=== PATIENT | male | born 1955 | race Caucasian/White ===

== ENCOUNTER 2020-10-10 13:15 | Outpatient (REF) | payer OTHER, SELFPAY ==
[2020-10-10 14:44] LABS: Alanine Aminotransferase 29 U/L (0-40); Albumin Level 4.4 g/dL (3.5-5.0); Alkaline Phosphatase 97 U/L (39-117); Anion Gap 14 (12-20); Aspartate Amino Transferase 23 U/L (5-37); Bilirubin Total 0.8 mg/dL (0.0-1.0); Blood Urea Nitrogen 10 mg/dL (9-16); Calcium 9.3 mg/dL (8.4-10.2); Carbon Dioxide 32 mmol/L (22-29); Chloride 98 mmol/L (96-108); Cholesterol 104 mg/dL; Estimated Glomerular Filt Rate > 60; Glucose Fasting 177 mg/dL (60-99); HDL Cholesterol 40 mg/dL; LDL Cholesterol Calculated 50 mg/dl; Potassium 3.8 mmol/l (3.3-5.1); Sodium 140 mmol/L (135-145); Total Protein 7.4 g/dL (6.5-8.0); Triglycerides 73 mg/dL
[2020-10-10 15:03] LABS: Estimated Average Glucose 120 mg/dL; Hemoglobin A1C 151.5231 umol/L; Hemoglobin A1c % 5.8 %
== END 2020-10-10 13:16 | disposition home or self-care (01) ==
LOC: HO.HMGCLDS 13:15
PROVIDERS: PCP Nurse Practitioner Family; Visit Provider Nurse Practitioner Family
DX: E04.2 Nontoxic multinodular goiter (principal); R79.89 Other specified abnormal findings of blood chemistry
CPT/HCPCS: 80053; 80061; 83036

== ENCOUNTER → 2020-10-31 13:38 | Outpatient (BNVA) | payer OTHER, SELFPAY | PROVIDERS: PCP Nurse Practitioner Family; Visit Provider Internal Medicine | DX: I25.10 Atherosclerotic heart disease of native coronary artery without angina pectoris (principal); F17.200 Nicotine dependence, unspecified, uncomplicated; Z95.1 Presence of aortocoronary bypass graft | CPT/HCPCS: 93005; 99212 ==

== ENCOUNTER → 2021-05-01 12:51 | Outpatient (BNVA) | payer MEDICARE, SELFPAY | PROVIDERS: PCP Nurse Practitioner Family; Referring Provider Nurse Practitioner Family; Visit Provider Internal Medicine | DX: I25.10 Atherosclerotic heart disease of native coronary artery without angina pectoris (principal); F17.200 Nicotine dependence, unspecified, uncomplicated; Z95.1 Presence of aortocoronary bypass graft | CPT/HCPCS: 99212 ==

== ENCOUNTER 2021-12-31 15:20 | Outpatient (REF) | payer MEDICARE, SELFPAY ==
--- NOTE | ~2021-12-31 | XR_ITS ---
EXAMINATION: XR CHEST CLINICAL INFORMATION: Pneumonia COMPARISON: Previous chest x-ray October [address] most recent April 2020 TECHNIQUE: 2 views of the chest were obtained. FINDINGS: The cardiac silhouette does not appear enlarged. There are post-CABG changes. Hilar and mediastinal contours are unremarkable. The lungs are well inflated. The lungs are clear. There is no pleural effusion or pneumothorax. There are degenerative changes of the spine. XR/XR chest 2V IMPRESSION: Well-inflated lungs. No evidence of pneumonia.
== END 2021-12-31 15:21 | disposition home or self-care (01) ==
LOC: HO.HMGCX 15:20
PROVIDERS: Visit Provider Internal Medicine
DX: J18.9 Pneumonia, unspecified organism (principal)
CPT/HCPCS: 71046

== ENCOUNTER 2022-01-15 14:01 | Outpatient (REF) | payer OTHER, SELFPAY ==
--- NOTE | ~2022-01-15 | XR_ITS ---
EXAMINATION: XR CHEST CLINICAL INFORMATION: Pneumonia. COMPARISON: None TECHNIQUE: 2 views of the chest were obtained. FINDINGS: The lungs are hyperinflated but clear of acute process. The heart size and pulmonary vascularity is normal. There are median sternotomy sutures and mediastinal el from previous CABG. No gross bony abnormality seen. XR/XR chest 2V IMPRESSION: Hyperinflated lungs without acute process.
== END 2022-01-15 14:02 | disposition home or self-care (01) ==
LOC: HO.HMGCX 14:01
PROVIDERS: PCP Nurse Practitioner Family; Visit Provider Nurse Practitioner Family
DX: J18.9 Pneumonia, unspecified organism (principal)
CPT/HCPCS: 71046

== ENCOUNTER 2022-01-27 13:02 | Outpatient (REF) | payer OTHER, SELFPAY ==
--- NOTE | ~2022-01-27 | CT_ITS ---
EXAMINATION: CT CHEST SCREENING CLINICAL INFORMATION: Current smoker COMPARISON: Previous chest CT most recent April 2020 TECHNIQUE: Multidetector volumetric CT imaging of the chest is performed without contrast using low dose technique. Additional 2D coronal and sagittal reformatted images and axial 3D maximum intensity projection (MIP) images are generated on the CT workstation. This CT examination was performed using dose optimization techniques as appropriate, variously including the following: *Automated exposure control *Adjustment of mA and/or kV according to patient size (this includes techniques or standardized protocols for targeted exams where dose is matched to indication/reason for exam; i.e. extremities or head) *Use of iterative reconstruction technique DLP: 83 mGy-cm FINDINGS: LUNGS: There is scarring or subsegmental atelectasis and focal bronchiectasis in the right middle lobe that is stable. The lungs are otherwise clear. There is new increased soft tissue seen in the right side of the upper trachea coronal reconstructed image 60. This appears heterogeneous in attenuation and mixed with air and is probably related to patient secretions. No other endobronchial or endotracheal lesion is seen. MEDIASTINUM: There are post-CABG changes. The mediastinum is otherwise normal. PLEURA: There is no pleural effusion. No pleural mass or thickening. AXILLA: No lymphadenopathy. UPPER ABDOMEN: There is dependent high attenuation in the gallbladder probably presenting gallstones. OSSEOUS STRUCTURES: There are degenerative changes of the spine. There are median sternotomy wires. CT/CT lung screening IMPRESSION: Stable scarring or subsegmental atelectasis and focal bronchiectasis in the right middle lobe. The lungs are otherwise clear. Post-CABG changes. Probable gallstones. ASSESSMENT: Lung-RADS category 2: Benign RECOMMENDATION: Annual low-dose chest CT follow-up recommended.
== END 2022-01-27 13:03 | disposition home or self-care (01) ==
LOC: HO.CT 13:02
PROVIDERS: Visit Provider Physician Assistant Medical
DX: Z12.2 Encounter for screening for malignant neoplasm of respiratory organs (principal); Z87.891 Personal history of nicotine dependence
CPT/HCPCS: 71271

== ENCOUNTER → 2022-05-20 13:23 | Outpatient (BNVA) | payer OTHER, SELFPAY | PROVIDERS: PCP Nurse Practitioner Family; Referring Provider Nurse Practitioner Family; Visit Provider Internal Medicine | DX: I25.10 Atherosclerotic heart disease of native coronary artery without angina pectoris (principal); F17.210 Nicotine dependence, cigarettes, uncomplicated; Z95.1 Presence of aortocoronary bypass graft | CPT/HCPCS: 93005; 99212 ==

== ENCOUNTER 2023-03-25 08:13 | Outpatient (REF) | payer OTHER, SELFPAY ==
[2023-03-25 11:11] LABS: MANUAL DIFF FLAG NO
[2023-03-25 11:22] LABS: Basophils Absolute Auto 0.1 X10*3/uL (0.0-0.2); Basophils Percent Auto 1.1 % (0-2); Eosinophils Absolute Auto 0.2 X10*3/uL (0.0-0.4); Eosinophils Percent Auto 2.4 % (0-4); Imm Gran Abs Auto 0.01 X10*3/uL (0.00-0.03); Imm Gran Pct Auto 0.1 % (0.0-0.4); Lymphocytes Percent Auto 41.4 % (20-40); Mean Corpuscular HGB Conc 33.3 g/dl (31.0-36.0); Mean Corpuscular Hemoglobin 30.3 pg (27.0-33.0); Mean Corpuscular Volume 90.9 fL (80.0-98.0); Mean Platelet Volume 11.3 fL (9.4-12.4); Monocytes Absolute Auto 0.7 X10*3/uL (0.1-1.2); Monocytes Percent Auto 9.4 % (2-11); Neutrophils Absolute Auto 3.3 x10*3/uL (2.0-8.3); Neutrophils Percent Auto 45.6 % (45-73); Platelet Count 258 X10*3/uL (160-400); Red Blood Count 4.29 X10*6/uL (4.60-5.80); Red Cell Distribution Width 12.6 % (11.0-16.0); White Blood Count 7.1 X10*3/uL (4.8-10.8)
[2023-03-25 11:23] LABS: Appearance Urine Clear; Color Urine Yellow; Glucose Urine UA >=1000 mg/dL (Negative); Leukocyte Esterase Urine Negative (Negative); Nitrite Urine Negative (Negative); UMIC TRIGGER UACC YES; Urine Blood Negative (Negative); Urine Ketones Negative (Negative); Urine Protein Negative (Neg-Trace)
[2023-03-25 11:31] LABS: Bacteria Urine None Seen (None Seen); Hyaline Casts Urine 0-2 /LPF (0-2); RBC Urine 0-2 /HPF (0-2); Squamous Epithelial Cell Urine 0-2 /HPF (0-2); WBC Urine 0-5 /HPF (0-5)
[2023-03-25 11:46] LABS: Estimated Average Glucose 237 mg/dL; Hemoglobin A1c % 9.9 %
[2023-03-25 12:05] LABS: TSH reflex Free T4 0.88 uIU/mL (0.32-4.0)
[2023-03-25 12:07] LABS: Creatinine Urine 59.27 mg/dL; Microalbum/Creatinine Ratio Ur 8.4 ug/mg cr
== END 2023-03-25 08:14 | disposition home or self-care (01) ==
LOC: HO.HMGCLDS 08:13
PROVIDERS: PCP Nurse Practitioner Family; Visit Provider Nurse Practitioner Family
DX: E11.9 Type 2 diabetes mellitus without complications (principal)
CPT/HCPCS: 36415; 81001; 82043; 83036; 84443; 85025

== ENCOUNTER 2023-09-17 12:10 | Outpatient (REF) | payer OTHER, SELFPAY ==
[2023-09-17 13:06] LABS: MANUAL DIFF FLAG NO
[2023-09-17 13:17] LABS: Appearance Urine Clear; Color Urine Yellow; Glucose Urine UA Negative (Negative); Leukocyte Esterase Urine Negative (Negative); Nitrite Urine Negative (Negative); Specific Gravity - Urine 1.015 (1.005-1.025); Urine Blood Negative (Negative); Urine Ketones Negative (Negative); Urine Protein Negative (Neg-Trace)
[2023-09-17 13:29] LABS: Basophils Absolute Auto 0.1 X10*3/uL (0.0-0.2); Eosinophils Absolute Auto 0.1 X10*3/uL (0.0-0.4); Eosinophils Percent Auto 2.3 % (0-4); Hematocrit 38.7 % (42.0-52.0); Hemoglobin 12.4 g/dl (14.0-18.0); Imm Gran Abs Auto 0.02 X10*3/uL (0.00-0.03); Imm Gran Pct Auto 0.3 % (0.0-0.4); Lymphocytes Percent Auto 32.9 % (20-40); Mean Corpuscular Hemoglobin 29.9 pg (27.0-33.0); Mean Corpuscular Volume 93.3 fL (80.0-98.0); Mean Platelet Volume 10.6 fL (9.4-12.4); Monocytes Absolute Auto 0.6 X10*3/uL (0.1-1.2); Monocytes Percent Auto 9.2 % (2-11); Neutrophils Absolute Auto 3.3 x10*3/uL (2.0-8.3); Neutrophils Percent Auto 54.3 % (45-73); Platelet Count 246 X10*3/uL (160-400); Red Blood Count 4.15 X10*6/uL (4.60-5.80); Red Cell Distribution Width 12.9 % (11.0-16.0); White Blood Count 6.1 X10*3/uL (4.8-10.8)
[2023-09-17 13:42] LABS: Estimated Average Glucose 134 mg/dL; Hemoglobin A1c % 6.3 % (<6.0)
[2023-09-17 14:06] LABS: Creatinine Urine 63.06 mg/dL; Microalbum/Creatinine Ratio Ur 15.8 ug/mg cr (<30)
[2023-09-17 14:16] LABS: Alanine Aminotransferase 13 U/L (0-40); Albumin Level 3.7 g/dL (3.5-5.0); Alkaline Phosphatase 88 U/L (39-117); Anion Gap 8 (12-20); Aspartate Amino Transferase 15 U/L (5-37); Bilirubin Total 0.4 mg/dL (0.0-1.0); Blood Urea Nitrogen 12 mg/dL (9-16); Carbon Dioxide 32 mmol/L (22-29); Chloride 101 mmol/L (96-108); Cholesterol 113 mg/dL (<200); Estimated Glomerular Filt Rate > 60; Glucose Fasting 128 mg/dL (60-99); Glucose Random 127 mg/dL (60-115); HDL Cholesterol 46 mg/dL (>40); LDL Cholesterol Calculated 57 mg/dL (<100); Potassium 4.3 mmol/L (3.3-5.1); Sodium 137 mmol/L (135-145); Total Protein 6.6 g/dL (6.5-8.0); Triglycerides 51 mg/dL (<150)
[2023-09-17 14:18] LABS: Prostate Specific Antigen Scr 0.48 ng/mL (<0.05-4.0); TSH reflex Free T4 1.33 uIU/mL (0.32-4.0)
== END 2023-09-17 12:11 | disposition home or self-care (01) ==
LOC: HO.HMGCLDS 12:10
PROVIDERS: PCP Nurse Practitioner Family; Visit Provider Nurse Practitioner Family
DX: Z12.5 Encounter for screening for malignant neoplasm of prostate (principal); E11.65 Type 2 diabetes mellitus with hyperglycemia
CPT/HCPCS: 36415; 80053; 80061; 81003; 82043; 82570; 83036; 84153; 84443; 85025

== ENCOUNTER 2024-02-09 20:15 | Emergency (ER) | payer OTHER, SELFPAY ==
[2024-02-09 20:21] VITALS: BP 160/64; PULSE 77; O2SAT 98
[2024-02-09 21:15] VITALS: BP 123/66; PULSE 56; RESP 16; TEMP 36.5; O2SAT 96; BMI 17.2
== END 2024-02-10 04:05 | disposition left against medical advice (07) ==
PROVIDERS: Emergency Provider Emergency Medicine
DX: M25.561 Pain in right knee (principal); M25.562 Pain in left knee
CPT/HCPCS: 99281

== ENCOUNTER 2024-03-24 12:22 | Outpatient (REF) | payer OTHER, SELFPAY ==
[2024-03-24 15:59] LABS: Appearance Urine Clear; Color Urine Yellow; Glucose Urine UA >=1000 mg/dL (Negative); Leukocyte Esterase Urine Negative (Negative); Nitrite Urine Negative (Negative); UMIC TRIGGER UACC YES; Urine Blood Negative (Negative); Urine Ketones Negative (Negative); Urine Protein Negative (Neg-Trace)
[2024-03-24 16:04] LABS: MANUAL DIFF FLAG NO
[2024-03-24 16:11] LABS: Bacteria Urine None Seen (None Seen); Hyaline Casts Urine 0-2 /LPF (0-2); RBC Urine 0-2 /HPF (0-2); Squamous Epithelial Cell Urine 0-2 /HPF (0-2); WBC Urine 0-5 /HPF (0-5)
[2024-03-24 16:15] LABS: Basophils Absolute Auto 0.1 X10*3/uL (0.0-0.2); Basophils Percent Auto 1.3 % (0-2); Eosinophils Absolute Auto 0.1 X10*3/uL (0.0-0.4); Eosinophils Percent Auto 0.9 % (0-4); Hematocrit 41.5 % (42.0-52.0); Hemoglobin 14.2 g/dl (14.0-18.0); Imm Gran Abs Auto 0.01 X10*3/uL (0.00-0.03); Imm Gran Pct Auto 0.1 % (0.0-0.4); Lymphocytes Absolute Auto 2.5 X10*3/uL (1.2-4.9); Mean Corpuscular HGB Conc 34.2 g/dl (31.0-36.0); Mean Corpuscular Hemoglobin 31.1 pg (27.0-33.0); Mean Platelet Volume 11.3 fL (9.4-12.4); Monocytes Absolute Auto 0.5 X10*3/uL (0.1-1.2); Monocytes Percent Auto 7.6 % (2-11); Neutrophils Absolute Auto 3.7 x10*3/uL (2.0-8.3); Neutrophils Percent Auto 54.1 % (45-73); Platelet Count 249 X10*3/uL (160-400); Red Blood Count 4.56 X10*6/uL (4.60-5.80); Red Cell Distribution Width 13.4 % (11.0-16.0); White Blood Count 6.8 X10*3/uL (4.8-10.8)
[2024-03-24 16:41] LABS: Creatinine Urine 53.35 mg/dL; Estimated Average Glucose 206 mg/dL; Hemoglobin A1c % 8.8 % (<6.0); Microalbum/Creatinine Ratio Ur 11.2 ug/mg cr (<30)
[2024-03-24 16:44] LABS: Alanine Aminotransferase 19 U/L (0-40); Albumin Level 4.1 g/dL (3.5-5.0); Alkaline Phosphatase 98 U/L (39-117); Anion Gap 11 (12-20); Aspartate Amino Transferase 13 U/L (5-37); Bilirubin Total 0.7 mg/dL (0.0-1.0); Blood Urea Nitrogen 9 mg/dL (9-16); Calcium 9.6 mg/dL (8.4-10.2); Carbon Dioxide 30 mmol/L (22-29); Chloride 103 mmol/L (96-108); Cholesterol 102 mg/dL (<200); Estimated Glomerular Filt Rate > 60; Glucose Fasting 302 mg/dL (60-99); HDL Cholesterol 38 mg/dL (>40); LDL Cholesterol Calculated 51 mg/dL (<100); Potassium 4.6 mmol/L (3.3-5.1); Sodium 139 mmol/L (135-145); Total Protein 6.7 g/dL (6.5-8.0); Triglycerides 69 mg/dL (<150)
[2024-03-24 16:50] LABS: Prostate Specific Antigen Scr 0.72 ng/mL (<0.05-4.0)
[2024-03-24 16:52] LABS: TSH reflex Free T4 0.64 uIU/mL (0.32-4.0)
== END 2024-03-24 12:23 | disposition home or self-care (01) ==
LOC: HO.HMGCLDS 12:22
PROVIDERS: PCP Nurse Practitioner Family; Visit Provider Nurse Practitioner Family
DX: E11.65 Type 2 diabetes mellitus with hyperglycemia (principal); E11.9 Type 2 diabetes mellitus without complications; Z12.5 Encounter for screening for malignant neoplasm of prostate
CPT/HCPCS: 36415; 80053; 80061; 81001; 81003; 82043; 82570; 83036; 84153; 84443; 85025

== ENCOUNTER 2024-03-28 12:52 | Outpatient (AMB) | payer OTHER, SELFPAY ==
--- NOTE | 2024-03-28 12:56 | MHC.PC.OV ---
Vital Signs 03/28/24 12:59 Height 5 ft 7 in Weight 204 lb BMI 31.9 BP 120/82 Blood Pressure Location Rt brachial Position Sitting Pulse 66 Pulse Source Pulse Oximeter Pulse Oximetry (%) 97 Oxygen Delivery Method Room Air Intake Visit Reasons: Followup diabetes Intake Note: Patient here for diabetes f/u Allergies ibuprofen [From Motrin] Adverse Reaction (Unknown, Verified 03/28/24 13:14) Gastrointestinal Upset Medication List - Last Reconciled 03/28/24 by MAURO Rodriguez- aspirin 81 mg PO DAILY 30 days atorvastatin 80 mg PO DAILY blood sugar diagnostic (FreeStyle Lite Strips) check glucose BID blood-glucose meter (FreeStyle Lite Meter kit) check glucose BID comp.stocking,knee,long,medium for edema, please wear daily dapagliflozin propanediol (Farxiga) 5 mg PO DAILY duloxetine 60 mg PO BEDTIME FreeStyle Jesu 2 [place] (flash glucose scanning reader) TID testing NS FreeStyle Jesu 2 Sensor (flash glucose sensor) TID testing NS lancets (FreeStyle Lancets) check glucose BID losartan 25 mg PO DAILY metformin ER 1,000 mg PO QPM metoprolol succinate ER 25 mg PO DAILY nicotine 1 patch topical DAILY 30 days Tobacco use date assessed: 03/28/24 Fall risk assessment: 2 + Falls in past year Last assessed Fall Risk: 03/28/24 Dental Screening Dental Screen Date: 03/28/24 Did you have a dental visit in the last 12 months?: No Did you have a dental problem in the last 6 months where you did not have access to dental care?: No Was dental information given to patient?: Patient has dentist HPI Followup diabetes HPI Details Pt is a diabetic, on an ARB and a statin. Last A1C was 8.8. Microalbumin is up to date. Denies polyuria, polydipsia, and neuropathy. Pt denies any signs and symptoms of hypoglycemia and does know how to correct it. Pt would not like to take any injectable meds. Will start farxiga 5mg. Will also increase metformin from 750mg daily to 750mg bid. Pt will schedule his own eye exam. He will also schedule a follow up with cardiology. Pt reports being off all street drugs for approximately 2 months. Labs are already drawn [facility] Medical History Smoking Atherosclerotic cardiovascular disease Surgical History Status post coronary artery bypass graft History of lumbar discectomy (~1994) History of coronary artery bypass graft (~07/30/18) History of cardiac catheterization (~07/21/18) Family History Father Diabetes Mother Diabetes Myasthenia gravis Maternal Uncle Substance use disorder Mental health disorder Social History Housing: Apartment Patient Tobacco Use Status: Current everyday Tobacco user Cigarettes Per Day: 10 e-Cigarette/Vaping Use: Never Used Second Hand Smoke Exposure: No service: No Current occupational status: retired and disabled Cognitive needs: No Hearing needs: No Vision needs: No Questionnaire PHQ-9 Over the last 2 weeks, how often have you been bothered by any of the following problems? 72520 - PHQ-9 Billing: Patient declined-do not bill Source: Developed by Drs. Alonso Mao, Dayo Khan and colleagues, with an educational yessica from [employer]. Thrive Questionnaire Date Thrive assessed: 02/05/22 Currently or been in a relationship where the following occur: no concerns reported THRIVE Score: 0 AUDIT C Alcohol Use Questionnaire (AUDIT-C) 1. How often do you have a drink containing alcohol?: Never 3. How often do you have six or more drinks on one occasion?: Never Total Score: 0 Score Reviewed/Action Taken: No NEREYDA-7 AMB Questionnaire NEREYDA-7 Date NEREYDA - 7 assessed: 03/28/24 Source: Developed by Drs. Alonso Mao, Micheline Hilliard, Dayo Case and colleagues, with an educational yessica from [employer]. NEREYDA-7 Assessment Billing NEREYDA-7 Assessment Tool: pt declined-do not bill Review of Systems Const Reports as per HPI Physical exam (Primary Care) Vital Signs: Last Vital Signs Pulse 66 03/28/24 12:59 BP 120/82 03/28/24 12:59 Pulse Ox 97 03/28/24 12:59 Oxygen Delivery Method Room Air 03/28/24 12:59 BMI result Body Mass Index 31.9 Tobacco/Smoking Status: Tobacco use Status Tobacco use date assessed 03/28/24 03/28/24 13:05 Patient Tobacco Use Status Current everyday Tobacco 03/28/24 12:57 e-Cigarette/Vaping Use Never Used 03/28/24 12:57 Thrive Assessment: Date of Thrive Assessment Date Thrive assessed 02/05/22 03/28/24 12:57 Currently or been in a relationship where the following occur: no concerns reported Const General: cooperative Nutritional Appearance: obese Orientation/consciousness: patient oriented x3 Resp Effort & Inspection: normal respiratory effort Auscultation: clear to auscultation bilaterally Cardio Rate: regular rate Rhythm: regular rhythm Heart sounds: S1 normal heart sound present and S2 normal heart sound present Neuro General: patient oriented x3 Extrem Other: bilat feet: + sensation with use of monofilament, feet intact, onychomycosis noted bilat, small corn to right foot plantar aspect of 5th MTP joint Psych Appearance: grossly normal Mental Status: mental status grossly normal Speech and movement: Normal speech and movement present Affect: normal affect Attitude: cooperative Thought process: Normal thought process present Thought content: Normal thought content present Insight: Good insight present (Psych) Judgement: Good judgement present (Psych) Assessment and Plan Assessment & Plan (1) Screening for colon cancer: Code(s): Z12.11 - Encounter for screening for malignant neoplasm of colon (2) Onychomycosis: Code(s): B35.1 - Tinea unguium Plan: referred to podiatry (3) Erectile dysfunction: Code(s): N52.9 - Male erectile dysfunction, unspecified Plan: testosterone ordered Plan The patient agreed to the use of a medical billing manager for this encounter. Scribed for [employer] Story by lisa Boland scribe, on 03/28/2024 at 13:10 EST. Orders: Orders Testosterone, Free/Total Today N52.9 - Male erectile dysfunction, unspecified Referrals Gastroenterology Referral Z12.11 - Encounter for screening for malignant neoplasm of colon Podiatry Referral B35.1 - Tinea unguium Medications: New dapagliflozin propanediol (Farxiga) 5 mg PO DAILY 90 tabs 0RF Changed From metformin ER 1,000 mg PO QPM To metformin ER 750 mg PO BID 90 days 180 tabs 0RF Coding Level of Care Code Est Pt Level 3 (37072) Diagnoses Screening for colon cancer Z12.11 Onychomycosis B35.1 Erectile dysfunction N52.9
[2024-03-28 12:59] VITALS: BP 120/82; PULSE 66; O2SAT 97; BMI 31.9
== END 2024-03-28 13:28 | disposition home or self-care (01) ==
PROVIDERS: PCP Nurse Practitioner Family; Visit Provider Nurse Practitioner Family
DX: N52.9 Male erectile dysfunction, unspecified (principal); B35.1 Tinea unguium; Z12.11 Encounter for screening for malignant neoplasm of colon
CPT/HCPCS: 99214

== ENCOUNTER 2024-04-27 06:22 | Outpatient (REF) | payer OTHER, SELFPAY ==
--- NOTE | ~2024-04-27 | XR_ITS ---
EXAMINATION: XR BILATERAL KNEES CLINICAL INFORMATION: Primary osteoarthritis right knee, pain left knee. COMPARISON: None available. TECHNIQUE: AP standing, sunrise and lateral views of each knee. FINDINGS: RIGHT KNEE: Diffuse demineralization. Moderate joint effusion. Vascular calcifications. Degenerative changes with asymmetric narrowing of the lateral aspect of the patellofemoral compartment. Mild narrowing of medial compartment. Multiple ossicles of indeterminate age in the region of the right tibial tuberosity. Focal periosteal reaction/exostosis along the proximal posterior shaft of the right tibia. LEFT KNEE: Diffuse demineralization. Moderate joint effusion. Vascular calcifications. Degenerative changes with asymmetric narrowing of the lateral aspect of the patellofemoral compartment. Mild narrowing of the medial compartment. XR/XR knee LT 3V IMPRESSION: 1. Degenerative changes in the bilateral knees. 2. Multiple ossicles of indeterminate age in the region of the right tibial tuberosity. 3. Focal periosteal reaction/exostosis along the proximal posterior shaft of the right tibia.
--- NOTE | ~2024-04-27 | XR_ITS ---
EXAMINATION: XR BILATERAL KNEES CLINICAL INFORMATION: Primary osteoarthritis right knee, pain left knee. COMPARISON: None available. TECHNIQUE: AP standing, sunrise and lateral views of each knee. FINDINGS: RIGHT KNEE: Diffuse demineralization. Moderate joint effusion. Vascular calcifications. Degenerative changes with asymmetric narrowing of the lateral aspect of the patellofemoral compartment. Mild narrowing of medial compartment. Multiple ossicles of indeterminate age in the region of the right tibial tuberosity. Focal periosteal reaction/exostosis along the proximal posterior shaft of the right tibia. LEFT KNEE: Diffuse demineralization. Moderate joint effusion. Vascular calcifications. Degenerative changes with asymmetric narrowing of the lateral aspect of the patellofemoral compartment. Mild narrowing of the medial compartment. XR/XR knee RT 3V IMPRESSION: 1. Degenerative changes in the bilateral knees. 2. Multiple ossicles of indeterminate age in the region of the right tibial tuberosity. 3. Focal periosteal reaction/exostosis along the proximal posterior shaft of the right tibia.
== END 2024-04-27 06:23 | disposition home or self-care (01) ==
LOC: HO.HOSX 06:22
PROVIDERS: Visit Provider Physician Assistant
DX: M17.11 Unilateral primary osteoarthritis, right knee (principal); M25.562 Pain in left knee
CPT/HCPCS: 73562; 99202

== ENCOUNTER 2024-04-27 09:54 | Outpatient (AMB) | payer OTHER, SELFPAY ==
--- NOTE | 2024-04-27 09:57 | A.OFFVIS_ITS ---
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 Patient reports his pain has been present for quite some time, a little over 10 years with his right knee being the worse. His pain is located at the anterior aspect of knee and with ambulation he has pain in the lateral aspect of knee. States feeling a pulling/tearing sensation in his knee. Numbness and tingling in both knees. He has discomfort with prolong sitting. No previous tx. If his pain becomes intolerable he will use Aspirin. He uses a cane for ambulation. Allergies ibuprofen [From Motrin] Adverse Reaction (Unknown, Verified 03/28/24 13:14) Gastrointestinal Upset Medication List - Last Reconciled 04/27/24 by Ruth Rolle PA-C aspirin 81 mg PO DAILY 30 days atorvastatin 80 mg PO DAILY blood sugar diagnostic (FreeStyle Lite Strips) check glucose BID blood-glucose meter (FreeStyle Lite Meter kit) check glucose BID comp.stocking,knee,long,medium for edema, please wear daily dapagliflozin propanediol (Farxiga) 5 mg PO DAILY duloxetine 60 mg PO BEDTIME FreeStyle Jesu 2 [place] (flash glucose scanning reader) TID testing NS FreeStyle Jesu 2 Sensor (flash glucose sensor) TID testing NS lancets (FreeStyle Lancets) check glucose BID losartan 25 mg PO DAILY metformin ER 750 mg PO BID 90 days metoprolol succinate ER 25 mg PO DAILY nicotine 1 patch topical DAILY 30 days semaglutide (Ozempic) 0.25 mg (0.368 mL) subcut QWEEK HPI 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 He states he has pain at the anterior aspect of the bilateral knees as well as pain at the lateral aspect of his knees with ambulation. His pain and discomfort are aggravated with prolonged sitting. He also experiences a pulling sensation as well numbness and tingling in his knees. He has not had any treatment in the past. He takes aspirin when the pain becomes intolerable. He uses a cane for ambulation. He is not interested in having a cortisone injection. He was recently diagnosed with diabetes. His A1c was 8.7 in March. [facility] Medical History Smoking Atherosclerotic cardiovascular disease Surgical History Status post coronary artery bypass graft History of lumbar discectomy (~1994) History of coronary artery bypass graft (~07/30/18) History of cardiac catheterization (~07/21/18) Family History Father Diabetes Mother Diabetes Myasthenia gravis Maternal Uncle Substance use disorder Mental health disorder Social History Housing: Apartment Patient Tobacco Use Status: Current everyday Tobacco user Cigarettes Per Day: 10 e-Cigarette/Vaping Use: Never Used Second Hand Smoke Exposure: No service: No Current occupational status: retired and disabled Cognitive needs: No Hearing needs: No Vision needs: No Review of Systems Const All systems reviewed & are unremarkable except as noted in HPI and below Physical Exam Vital Signs: BMI result Body Mass Index 31.9 Const General: cooperative, healthy appearing, comfortable, no acute distress, well developed and alert Orientation/consciousness: patient oriented x3 HEENT Head: Yes normal to inspection, Yes normocephalic and Yes atraumatic Eyes General: appearance normal, both eyes and all related structures Resp Effort & Inspection: normal respiratory effort and able to speak in complete sentences Cardio Rate: regular rate Peripheral pulses: Peripheral pulses 2+ throughout GI Palpation (GI): Soft to palpation Skin Lesions: no lesions Rashes: no rashes Neuro General: patient oriented x3 Extrem Other: Bilateral knee: Skin intact, no erythema or joint effusion. Tenderness along the medial and lateral joint line. Full ROM with crepitus. Negative Jason?s. No ligamentous laxity. NVI. ? Results Reviewed Results Reviewed: Xrays were obtained in the office today and personally reviewed by me of the right knee show mild oa Assessment & Plan Assessment & Plan (1) Osteoarthritis of right knee: Code(s): M17.11 - Unilateral primary osteoarthritis, right knee Category: Medical Plan We discussed options which include PT, NSAIDs and injections. The patient will defer on the injection today and proceed with PT and NSAIDs. I also sent a prescription of topical cream to his pharmacy. If symptoms persist, she will contact me for an injection, otherwise, PRN. Orders: Orders XR knee RT 3V 04/27/24 M17.11 - Unilateral primary osteoarthritis, right knee XR knee LT 3V 04/27/24 M25.562 - Pain in left knee Medications: New diclofenac sodium 1% apply to single knee, ankle, foot; for foot includes sole/toes/top of foot 4 grams topical QID 100 grams 0RF 30 days Patient Instructions: Scribed for Ruth Rolle PA-C, by Abran Murray chief medical officer, on 04/27/2024 at 10:15 AM EST.? I, Ruth Rolle PA-C, have personally reviewed and agree with the information entered by the scribe. Coding Level of Care Code New Pt Level 3 (93183) Diagnoses Osteoarthritis of right knee M17.11
[2024-04-27 10:36] VITALS: BMI 31.9
== END 2024-04-27 11:56 | disposition home or self-care (01) ==
PROVIDERS: PCP Nurse Practitioner Family; Visit Provider Physician Assistant
DX: M17.11 Unilateral primary osteoarthritis, right knee (principal); M25.562 Pain in left knee
CPT/HCPCS: 99203

== ENCOUNTER 2024-05-05 09:57 | Outpatient (REF) | payer OTHER, SELFPAY ==
--- NOTE | ~2024-05-05 | XR_ITS ---
EXAMINATION: XR ANKLE, RIGHT CLINICAL INFORMATION: Right ankle pain COMPARISON: Radiographs 06/15/2019 TECHNIQUE: AP, lateral, and mortise views of the right ankle. FINDINGS: The previously demonstrated distal fibular fracture appears completely healed. 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 Prominent os trigonum. Heel spur and posterior calcaneal enthesophyte. XR/XR ankle RT min 3V IMPRESSION: Healed distal fibular fracture. 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
== END 2024-05-05 09:58 | disposition home or self-care (01) ==
LOC: HO.HOSX 09:57
PROVIDERS: PCP Nurse Practitioner Family; Visit Provider Physician Assistant
DX: M19.071 Primary osteoarthritis, right ankle and foot (principal)
CPT/HCPCS: 73610; 99212

== ENCOUNTER 2024-05-05 09:57 | Outpatient (AMB) | payer OTHER, SELFPAY ==
--- NOTE | 2024-05-05 10:01 | MHC.OFFVIS ---
Vital Signs 05/05/24 10:08 Height 5 ft 7 in Weight 204 lb BMI 31.9 Intake Visit Reasons: New prob- RT ankle pain Intake Note: Kavon 68 year old male who presents today for an evaluation of right ankle. Patient reports his ankle pain has been present for quite some time, states 2 separate injuries years ago however he was never treated. break in ankle never treated. Currently constant dull pain located at the medial aspect of ankle as well as numbness and tingling. States with ambulation he will have a burning sensation. He uses Tylenol as needed. Allergies ibuprofen [From Motrin] Adverse Reaction (Unknown, Verified 05/05/24 10:16) Gastrointestinal Upset HPI HPI New prob- RT ankle pain: Details: 68-year-old male who presents to the office today for an evaluation of right ankle pain. He reports he had 2 separate injuries 2 years ago where he fractured his ankle however he was never treated. He currently states he has constant dull pain at the medial aspect of his ankle as well as numbness and tingling. He also experiences a burning sensation with ambulation. He uses Tylenol for his pain PRN. [facility] Medical History Smoking Atherosclerotic cardiovascular disease Surgical History Status post coronary artery bypass graft History of lumbar discectomy (~1994) History of coronary artery bypass graft (~07/30/18) History of cardiac catheterization (~07/21/18) Family History Father Diabetes Mother Diabetes Myasthenia gravis Maternal Uncle Substance use disorder Mental health disorder Social History Housing: Apartment Patient Tobacco Use Status: Current everyday Tobacco user Cigarettes Per Day: 10 e-Cigarette/Vaping Use: Never Used Second Hand Smoke Exposure: No service: No Current occupational status: retired and disabled Cognitive needs: No Hearing needs: No Vision needs: No Review of Systems Const All systems reviewed & are unremarkable except as noted in HPI and below Physical Exam Vital Signs: BMI result Body Mass Index 31.9 Extrem Other: Right ankle: Normal to inspection with trace swelling over the medial and lateral malleolus with tenderness along the soft tissues.No discomfort along the posterior aspect of the ankle, no deformity along the Achilles tendon, negative Bates?s. No pain along the syndesmosis or anterior tibia. No laxity, NVI. Results Reviewed Results Reviewed: Xrays were obtained in the office today and personally reviewed by me of the right ankle show old healed fracture over the medial and lateral mal with mil oa- ankle mortise intact. Assessment & Plan Assessment & Plan (1) Osteoarthritis of right ankle and foot: Code(s): M19.071 - Primary osteoarthritis, right ankle and foot Category: Medical Plan We discussed options which include PT, NSAIDs and injections. The patient will defer on the injection today and proceed with PT and NSAIDs. He was placed in a lace of ankle brace in the office today. If symptoms persist, she will contact me for an injection, otherwise, PRN. Orders: Orders XR ankle RT min 3V Today M25.571 - Pain in right ankle and joints of right foot PT Evaluation and Treatment Today M19.071 - Primary osteoarthritis, right ankle and foot Medications: New naproxen 500 mg PO BID 60 tabs 3RF 30 days S93.409A - Sprain of unspecified ligament of unspecified ankle, initial encounter Patient Instructions: Scribed for Ruth Rolle PA-C, by Abran Murray medical clerical assistant, on 05/05/2024 at 10:15 AM EST.? I, Ruth Rolle PA-C, have personally reviewed and agree with the information entered by the scribe. Coding Level of Care Code Est Pt Level 3 (24261) Diagnoses Osteoarthritis of right ankle and foot M19.071
[2024-05-05 10:08] VITALS: BMI 31.9
== END 2024-05-05 11:20 | disposition home or self-care (01) ==
PROVIDERS: PCP Nurse Practitioner Family; Visit Provider Physician Assistant
DX: M19.071 Primary osteoarthritis, right ankle and foot (principal)
CPT/HCPCS: 99213

== ENCOUNTER 2024-06-07 13:29 | Outpatient (AMB) | payer OTHER, SELFPAY ==
--- NOTE | 2024-06-07 13:31 | MHC.OFFVIS ---
Vital Signs 06/07/24 13:32 Height 5 ft 7 in Weight 195 lb 12.328 oz BMI 30.7 BP 90/54 L Blood Pressure Location Lt brachial Position Sitting Pulse 86 Pulse Source Pulse Oximeter Intake Visit Reasons: OVER DUE F/U Integrity Manager Required: No Accompanied by: Self / Same As Patient Allergies ibuprofen [From Motrin] Adverse Reaction (Unknown, Verified 05/05/24 10:16) Gastrointestinal Upset Medication List - Last Reconciled 06/07/24 by Ciro Calles MD aspirin 81 mg PO DAILY 30 days atorvastatin 80 mg PO DAILY blood sugar diagnostic (FreeStyle Lite Strips) check glucose BID blood-glucose meter (FreeStyle Lite Meter kit) check glucose BID comp.stocking,knee,long,medium for edema, please wear daily diclofenac sodium 1% 4 grams topical QID 30 days duloxetine 60 mg PO BEDTIME Farxiga (dapagliflozin propanediol) 5 mg PO DAILY NS FreeStyle Jesu 2 [place] (flash glucose scanning reader) TID testing NS FreeStyle Jesu 2 Sensor (flash glucose sensor) TID testing NS lancets (FreeStyle Lancets) check glucose BID losartan 25 mg PO DAILY metformin ER 750 mg PO BID 90 days metoprolol succinate ER 25 mg PO DAILY naproxen 500 mg PO BID 30 days semaglutide (Ozempic) 0.5 mg (0.736 mL) subcut QWEEK HPI Comments Details: Lalito is here for follow-up regarding coronary artery disease and coronary artery bypass surgery. In 2018, he underwent cardiac testing for complaints of shortness of breath and chest pain. That showed multivessel coronary artery disease the leading to coronary artery bypass surgery. He states he is feeling fine. No cardiac symptoms whatsoever. [facility] Medical History Smoking Atherosclerotic cardiovascular disease Surgical History Status post coronary artery bypass graft History of lumbar discectomy (~1994) History of coronary artery bypass graft (~07/30/18) History of cardiac catheterization (~07/21/18) Family History Father Diabetes Mother Diabetes Myasthenia gravis Maternal Uncle Substance use disorder Mental health disorder Social History (Updated 06/07/24 @ 13:37 by Kamla Stevenson CMA) Housing: Apartment Patient Tobacco Use Status: Former Tobacco user Cigarettes Per Day: 10 Smoked in Last 30 Days: No e-Cigarette/Vaping Use: Never Used Second Hand Smoke Exposure: No service: No Current occupational status: retired and disabled Cognitive needs: No Hearing needs: No Vision needs: No Review of Systems Const Denies chills, Denies fatigue, Denies fever(s), Denies weight gain and Denies weight loss ENT Denies dizziness Card Denies chest pain, Denies leg edema, Denies lightheadedness, Denies palpitations, Denies dyspnea on exertion, Denies orthopnea and Denies other Resp Denies cough and Denies dyspnea on exertion GI Denies hematochezia and Denies change in stool character Musc Denies abnormal gait, Denies muscle weakness, Denies numbness, Denies radiating pain into limb and Denies tingling Neuro Denies abnormal gait, Denies dizziness, Denies numbness and Denies tingling Endo Denies fatigue and Denies palpitations Physical Exam Vital Signs: Last Vital Signs Pulse 86 06/07/24 13:32 BP 90/54 L 06/07/24 13:32 BMI result Body Mass Index 30.7 Const General: comfortable and no acute distress Orientation/consciousness: patient oriented x3 HEENT Other: Unremarkable Head: Yes normal to inspection Neck Neck: Yes normal visual inspection Chest Chest palpation & inspection: normal inspection of the chest Resp Auscultation: clear to auscultation bilaterally Cardio Palpation: normal PMI Heart sounds: S1 normal heart sound present, S2 normal heart sound present, no gallops, no murmurs and no rubs GI Palpation (GI): Soft to palpation Back/Spine/Pelvis Other: unremarkable Skin General skin exam: no rashes or lesions noted Neuro General: patient oriented x3 Extrem General: Yes normal to inspection Psych Mental Status: mental status grossly normal Office Procedures EKG Details: EKG with underlying sinus rhythm at 74/Min; no significant ST-T changes and otherwise unremarkable. [place]. [id number], Complete Assessment & Plan Assessment & Plan (1) Atherosclerotic cardiovascular disease: Code(s): I25.10 - Atherosclerotic heart disease of [place] coronary artery without angina pectoris Category: Medical (2) Status post coronary artery bypass graft: Code(s): Z95.1 - Presence of aortocoronary bypass graft Category: Surgical Plan Stable from cardiac. Continue aspirin, statins. Last LDL cholesterol 51 mg/dL. Blood pressure slightly low but previous blood pressures have been normal. If it stays like this, then may stop beta-blockers. Discussed about this today. Otherwise, follow-up in 1 year. In the interim, call with concerns. Coding Level of Care Code Est Pt Level 3 (88770) Diagnoses Atherosclerotic cardiovascular disease I25.10 Status post coronary artery bypass graft Z95.1 CPT Codes EKG - CPT: 35029-[id number], Complete ([id number])
[2024-06-07 13:32] VITALS: BP 90/54; PULSE 86; BMI 30.7
== END 2024-06-07 13:57 | disposition home or self-care (01) ==
PROVIDERS: PCP Nurse Practitioner Family; Visit Provider Internal Medicine
DX: I25.10 Atherosclerotic heart disease of native coronary artery without angina pectoris (principal); Z95.1 Presence of aortocoronary bypass graft
CPT/HCPCS: 93010; 99213

== ENCOUNTER → 2024-06-07 13:29 | Outpatient (BNVA) | payer OTHER, SELFPAY | PROVIDERS: PCP Nurse Practitioner Family; Visit Provider Internal Medicine | DX: I25.10 Atherosclerotic heart disease of native coronary artery without angina pectoris (principal); I10 Essential (primary) hypertension; Z95.1 Presence of aortocoronary bypass graft | CPT/HCPCS: 93005; 99212 ==

== ENCOUNTER 2024-08-04 11:39 | Outpatient (AMB) | payer OTHER, SELFPAY ==
[2024-08-04 11:41] VITALS: BP 110/70; PULSE 73; O2SAT 97; BMI 30.1
--- NOTE | 2024-08-04 11:41 | A.OFFPC_ITS ---
Vital Signs 08/04/24 11:41 Height 5 ft 7 in Weight 192 lb BMI 30.1 BP 110/70 Blood Pressure Location Rt brachial Position Sitting Pulse 73 Pulse Source Pulse Oximeter Pulse Oximetry (%) 97 Oxygen Delivery Method Room Air Intake Visit Reasons: F/U DM Intake Note: pt is here for diabetic follow up Certified Nurse Midwife Required: No Accompanied by: Self / Same As Patient Allergies ibuprofen [From Motrin] Adverse Reaction (Unknown, Verified 08/04/24 12:27) Gastrointestinal Upset Medication List - Last Reconciled 08/04/24 by FAWAD Rodriguez aspirin 81 mg PO DAILY 30 days atorvastatin 80 mg PO DAILY blood sugar diagnostic (FreeStyle Lite Strips) check glucose BID blood-glucose meter (FreeStyle Lite Meter kit) check glucose BID comp.stocking,knee,long,medium for edema, please wear daily diclofenac sodium 1% 4 grams topical QID duloxetine 60 mg PO BEDTIME Farxiga (dapagliflozin propanediol) 5 mg PO DAILY NS FreeStyle Jesu 2 [place] (flash glucose scanning reader) TID testing NS FreeStyle Jesu 2 Sensor (flash glucose sensor) TID testing NS [handheld shower head As directed] lancets (FreeStyle Lancets) check glucose BID losartan 25 mg PO DAILY metformin ER 750 mg PO BID 90 days metoprolol succinate ER 25 mg PO DAILY naproxen 500 mg PO BID 30 days [raised toilet seat As directed] semaglutide (Ozempic) 0.5 mg (0.736 mL) subcut QWEEK Tobacco use date assessed: 03/28/24 Fall risk assessment: No Falls in past year Last assessed Fall Risk: 08/04/24 Dental Screening Dental Screen Date: 03/28/24 HPI F/U DM HPI Details Pt is a diabetic, on an ARB and a statin. A1C in office today is 6.3. Microalbumin is up to date. Denies polyuria, polydipsia, does report neuropathy. Pt denies any signs and symptoms of hypoglycemia and does know how to correct it. Pt will schedule his own eye exam. [facility] Medical History Smoking Atherosclerotic cardiovascular disease Surgical History Status post coronary artery bypass graft History of lumbar discectomy (~1994) History of coronary artery bypass graft (~07/30/18) History of cardiac catheterization (~07/21/18) Family History Father Diabetes Mother Diabetes Myasthenia gravis Maternal Uncle Substance use disorder Mental health disorder Social History Housing: Apartment Patient Tobacco Use Status: Former Tobacco user Cigarettes Per Day: 10 e-Cigarette/Vaping Use: Never Used Second Hand Smoke Exposure: No service: No Current occupational status: retired and disabled Cognitive needs: No Hearing needs: No Vision needs: No Questionnaire PHQ-9 Over the last 2 weeks, how often have you been bothered by any of the following problems? 1. Little interest or pleasure in doing things: nearly every day 2. Feeling down, depressed, or hopeless: nearly every day 3. Trouble falling or staying asleep, or sleeping too much: not at all 4. Feeling tired or having little energy: not at all 5. Poor appetite or overeating: nearly every day 6. Feeling bad about yourself - or that you are a failure or have let yourself or your family down: nearly every day 7. Trouble concentrating on things, such as reading the newspaper or watching television: nearly every day 8. Moving or speaking so slowly that other people could have noticed. Or the opposite - being so fidgety or restless that you have been moving around a lot more than usual: nearly every day 9. Thoughts that you would be better off or of hurting yourself in some way: not at all Total score: 18 Depression Screening Interpretation: Positive Depression Screening Follow-up: Existing condition and Declines treatment Depression Screening Done: Yes 74554 - PHQ-9 Billing: Yes Source: Developed by Drs. Alonso Mao, Micheline Hilliard, Dayo Case and colleagues, with an educational yessica from [employer]. Thrive Questionnaire Date Thrive assessed: 08/04/24 I am a: Patient What is your living situation today?: I choose not to answer this question Within the past 12 months, did the food you bought not last and you didn't have the money to get more?: Sometimes True Within the past 12 months, did you worry whether your food would run out before you got money to buy more?: I choose not to answer this question Do you have trouble paying for medicines?: I choose not to answer this question Do you have trouble getting transportation to medical appointments?: I choose not to answer this question Do you have trouble paying your heating and electricity bill?: Yes Do you have trouble taking care of your child, family member or friend?: I choose not to answer this question Do you have trouble with day-to-day activities such as bathing, preparing meals, shopping, managing finances, etc.?: Yes Are you currently unemployed and looking for a job?: I choose not to answer this question Are you interested in more education?: No Currently or been in a relationship where the following occur: I choose not to answer THRIVE Score: 2 AUDIT C Alcohol Use Questionnaire (AUDIT-C) 1. How often do you have a drink containing alcohol?: Never 3. How often do you have six or more drinks on one occasion?: Never Total Score: 0 Score Reviewed/Action Taken: Yes NEREYDA-7 AMB Questionnaire NEREYDA-7 Date NEREYDA - 7 assessed: 08/04/24 Source: Developed by Drs. Alonso Mao, Micheline Hilliard, Dayo Case and colleagues, with an educational yessica from [employer]. NEREYDA-7 Assessment Billing NEREYDA-7 Assessment Tool: pt declined-do not bill Review of Systems Const Reports as per HPI Physical exam (Primary Care) Vital Signs: Last Vital Signs Pulse 73 08/04/24 11:41 BP 110/70 08/04/24 11:41 Pulse Ox 97 08/04/24 11:41 Oxygen Delivery Method Room Air 08/04/24 11:41 BMI result Body Mass Index 30.1 Tobacco/Smoking Status: Tobacco use Status Tobacco use date assessed 03/28/24 08/04/24 11:43 Patient Tobacco Use Status Former Tobacco user 08/04/24 11:43 e-Cigarette/Vaping Use Never Used 08/04/24 11:43 PHQ-9: PHQ-9 Score PHQ-9: Total score 18 08/04/24 11:56 Depression Screening Interpretation: Positive Depression Screening Follow-up: Existing condition and Declines treatment Thrive Assessment: Date of Thrive Assessment Date Thrive assessed 08/04/24 08/04/24 11:43 Currently or been in a relationship where the following occur: I choose not to answer Const General: cooperative Orientation/consciousness: patient oriented x3 Resp Effort & Inspection: normal respiratory effort Auscultation: clear to auscultation bilaterally Cardio Rate: regular rate Rhythm: regular rhythm Heart sounds: S1 normal heart sound present and S2 normal heart sound present Neuro General: patient oriented x3 Extrem Other: right foot: + sensation with use of monofilament to toes only, left foot weak sensation with monofilament Psych Appearance: grossly normal Mental Status: mental status grossly normal Speech and movement: Normal speech and movement present Affect: normal affect Attitude: cooperative Thought process: Normal thought process present Thought content: Normal thought content present Insight: Good insight present (Psych) Judgement: Good judgement present (Psych) Results AMB Random Glucose (hemocue) AMB Random Glucose (hemocue) 144 mg/dL Last Edit by Zachery Coker CMA o n 08/04/24 11:58 AMB Hemoglobin A1c AMB Hemoglobin A1c 6.3 % Last Edit by Zachery Coker CMA on 08/04/24 12: 00 Results Reviewed Results Reviewed: Laboratory Last Values Random Glu (Clinic) 144 mg/dL 08/04/24 11:57 Hgb A1c (Clinic) 6.3 % (4.0-6.0) H 08/04/24 11:57 Coding Level of Care Code Est Pt Level 3 (64169) Diagnoses Diabetes mellitus with neuropathy E11.40 Assessment & Plan Assessment & Plan (1) Diabetes mellitus with neuropathy: Code(s): E11.40 - Type 2 diabetes mellitus with diabetic neuropathy, unspecified Category: Medical Plan: 6.3 a1c, Plan The patient agreed to the use of a medical collections representative for this encounter. Scribed for FAWAD Story by Elvira Knowles medical collections representative, on 08/04/2024 at 11:55 EST. Orders: Orders AMB Hemoglobin A1c Today Z13.9 - Encounter for screening, unspecified Complete Blood Count Auto Diff Today E11.40 - Type 2 diabetes mellitus with diabetic neuropathy, unspecified Comprehensive [place]. Panel Fast Today E11.40 - Type 2 diabetes mellitus with diabetic neuropathy, unspecified UA CC w/rflx Micro + Cult Today E11.40 - Type 2 diabetes mellitus with diabetic neuropathy, unspecified Lipid Panel Today E11.40 - Type 2 diabetes mellitus with diabetic neuropathy, unspecified AMB Random Glucose (hemocue) Today Z13.9 - Encounter for screening, unspecified TSH reflex Free T4 Today E11.40 - Type 2 diabetes mellitus with diabetic neuropathy, unspecified
== END 2024-08-04 12:11 | disposition home or self-care (01) ==
PROVIDERS: PCP Nurse Practitioner Family; Visit Provider Nurse Practitioner Family
DX: Z13.9 Encounter for screening, unspecified (principal); E11.40 Type 2 diabetes mellitus with diabetic neuropathy, unspecified

== ENCOUNTER → 2024-08-04 11:39 | Outpatient (BNVA) | payer OTHER, SELFPAY | PROVIDERS: PCP Nurse Practitioner Family; Visit Provider Nurse Practitioner Family | DX: E11.40 Type 2 diabetes mellitus with diabetic neuropathy, unspecified (principal) | CPT/HCPCS: 82948; 83036; 96127; 99212 ==

== ENCOUNTER 2024-08-30 10:11 | Outpatient (AMB) | payer OTHER, SELFPAY ==
[2024-08-30 10:44] VITALS: BP 112/70; PULSE 75; O2SAT 96; BMI 31.0
--- NOTE | 2024-08-30 10:44 | A.OFFPC_ITS ---
Vital Signs 08/30/24 10:44 Height 5 ft 7 in Weight 198 lb BMI 31.0 BP 112/70 Blood Pressure Location Rt brachial Position Sitting Pulse 75 Pulse Source Pulse Oximeter Pulse Oximetry (%) 96 Oxygen Delivery Method Room Air Intake Visit Reasons: Diabetic shashank coulter per Pam Bee has paperwork Intake Note: Pt is here today for his Diabetic shoes script Allergies ibuprofen [From Motrin] Adverse Reaction (Unknown, Verified 08/30/24 11:10) Gastrointestinal Upset Medication List - Last Reconciled 08/30/24 by Rose Rizo MD aspirin 81 mg PO DAILY 30 days atorvastatin 80 mg PO DAILY blood sugar diagnostic (FreeStyle Lite Strips) check glucose BID blood-glucose meter (FreeStyle Lite Meter kit) check glucose BID comp.stocking,knee,long,medium for edema, please wear daily diclofenac sodium 1% 4 grams topical QID duloxetine 60 mg PO BEDTIME Farxiga (dapagliflozin propanediol) 5 mg PO DAILY NS FreeStyle Jesu 2 [place] (flash glucose scanning reader) TID testing NS FreeStyle Jesu 2 Sensor (flash glucose sensor) TID testing NS [handheld shower head As directed] lancets (FreeStyle Lancets) check glucose BID losartan 25 mg PO DAILY metformin ER 750 mg PO BID 90 days metoprolol succinate ER 25 mg PO DAILY [raised toilet seat As directed] semaglutide (Ozempic) 0.5 mg (0.736 mL) subcut QWEEK Tobacco use date assessed: 08/30/24 Fall risk assessment: 1 Fall in past year Last assessed Fall Risk: 08/30/24 Dental Screening Dental Screen Date: 08/30/24 Did you have a dental visit in the last 12 months?: Yes Did you have a dental problem in the last 6 months where you did not have access to dental care?: Yes Was dental information given to patient?: Patient has dentist HPI shashank Ortega per Pam Bee has paperwork HPI Details 68-year-old male with diabetes mellitus with peripheral neuropathy, hypertension, atherosclerotic cardiovascular disease status post CABG osteoarthritis, with history of right ankle fracture, onychomycosis followed by Podiatry, here today for follow-up. He has been compliant with taking his medications, and tries to stay active but unable to exercise much due to his ankle fracture at present time He is is currently on Ozempic, metformin ER, Farxiga for his diabetes with latest hemoglobin A1c at 6.3%. Lipids stable controlled on atorvastatin 80 mg daily, with last lipids within normal limits except for low good cholesterol level. [facility] Medical History History of fibula fracture Coronary artery disease Diabetes mellitus with diabetic neuropathy, without long-term current use of insulin Smoking Atherosclerotic cardiovascular disease Surgical History Status post coronary artery bypass graft History of lumbar discectomy (~1994) History of coronary artery bypass graft (~07/30/18) History of cardiac catheterization (~07/21/18) Family History Father Diabetes Mother Diabetes Myasthenia gravis Maternal Uncle Substance use disorder Mental health disorder Social History Housing: Apartment Patient Tobacco Use Status: Former Tobacco user Cigarettes Per Day: 10 e-Cigarette/Vaping Use: Never Used Second Hand Smoke Exposure: No service: No Current occupational status: retired and disabled Cognitive needs: No Hearing needs: No Vision needs: No Questionnaire Thrive Questionnaire Date Thrive assessed: 08/04/24 I am a: Patient What is your living situation today?: I choose not to answer this question Within the past 12 months, did the food you bought not last and you didn't have the money to get more?: Sometimes True Within the past 12 months, did you worry whether your food would run out before you got money to buy more?: I choose not to answer this question Do you have trouble paying for medicines?: I choose not to answer this question Do you have trouble getting transportation to medical appointments?: I choose not to answer this question Do you have trouble paying your heating and electricity bill?: Yes Do you have trouble taking care of your child, family member or friend?: I choose not to answer this question Do you have trouble with day-to-day activities such as bathing, preparing meals, shopping, managing finances, etc.?: Yes Are you currently unemployed and looking for a job?: I choose not to answer this question Are you interested in more education?: No Currently or been in a relationship where the following occur: I choose not to answer THRIVE Score: 2 Review of Systems Const All systems reviewed & are unremarkable except as noted in HPI and below Denies fatigue and Denies fever(s) ENT Denies dizziness Card Denies chest pain, Denies leg edema, Denies lightheadedness, Denies palpitations and Denies dyspnea on exertion Resp Denies cough and Denies dyspnea on exertion GI Reports no additional complaints Reports no additional complaints Musc Reports numbness (In bilateral foot) Skin/Breast Reports nail changes (Onychomycosis right big toenail) Neuro Denies dizziness and Reports numbness (In bilateral foot) Endo Denies fatigue and Denies palpitations Physical exam (Primary Care) Vital Signs: Last Vital Signs Pulse 75 08/30/24 10:44 BP 112/70 08/30/24 10:44 Pulse Ox 96 08/30/24 10:44 Oxygen Delivery Method Room Air 08/30/24 10:44 BMI result Body Mass Index 31.0 Tobacco/Smoking Status: Tobacco use Status Tobacco use date assessed 08/30/24 08/30/24 10:47 Patient Tobacco Use Status Former Tobacco user 08/30/24 10:47 e-Cigarette/Vaping Use Never Used 08/30/24 10:47 Thrive Assessment: Date of Thrive Assessment Date Thrive assessed 08/04/24 08/30/24 10:47 Currently or been in a relationship where the following occur: I choose not to answer Const General: cooperative Neck Neck: Yes full ROM, Yes no lymphadenopathy and Yes supple Resp Effort & Inspection: normal respiratory effort Auscultation: clear to auscultation bilaterally Cardio Rate: regular rate Rhythm: regular rhythm Heart sounds: S1 normal heart sound present and S2 normal heart sound present Skin Other: Thick friable toenail right big toenail, hypertrophied yellowish discoloration in toenails of both feet, plantar callus noted bilateral Wounds: no wounds Neuro General: absent sensation to monofilament (Both feet) Extrem General: Yes full ROM, Yes no joint enlargement and Yes no pedal edema Psych Other: Bilateral feet cool to touch Results Reviewed Results Reviewed: Laboratory Tests 03/24/24 08/04/24 12:40 11:57 Creatinine 0.85 Estimated GFR > 60 Hgb A1c (Clinic) 6.3 H Triglycerides 69 Cholesterol 102 LDL Cholesterol, Calc 51 HDL Cholesterol 38 L Urine Creatinine 53.35 Urine Microalbumin 6.0 Microalb/Creat Ratio 11.2 Coding Level of Care Code Est Pt Level 4 (88370) Complex EM visit Add On G2211 Diagnoses Type 2 diabetes mellitus with diabetic neuropathy, without long-term current use of insulin E11.40 Diabetes mellitus type: type 2 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 Continued on Farxiga, Ozempic and metformin at the same dose. continue to check fasting blood sugar at home, maintain log and bring to next appointment for review. Reinforced diabetic diet and regular exercise with patient. Counseled regarding importance of yearly diabetes retinopathy screening. Patient advised to inspect feet daily, for any signs of injury, callus or infection. Needs diabetic shoes. Compliance with diet and regular exercise again stressed. Blood pressure goal is less than 130/80, goal LDL is less than 100 and goal hemoglobin A1c is less than 7% , has appointment with PCP in 11/2024 (2) Onychomycosis: Code(s): B35.1 - Tinea unguium Category: Medical Plan: Followed by Podiatry
== END 2024-08-30 13:53 | disposition home or self-care (01) ==
PROVIDERS: PCP Nurse Practitioner Family; Visit Provider Internal Medicine
DX: E11.40 Type 2 diabetes mellitus with diabetic neuropathy, unspecified (principal); B35.1 Tinea unguium

== ENCOUNTER → 2024-08-30 10:11 | Outpatient (BNVA) | payer OTHER, SELFPAY | PROVIDERS: PCP Nurse Practitioner Family; Visit Provider Internal Medicine | DX: E11.40 Type 2 diabetes mellitus with diabetic neuropathy, unspecified (principal); B35.1 Tinea unguium | CPT/HCPCS: 99212 ==

== ENCOUNTER 2024-09-13 10:00 | Outpatient (RCR) | payer OTHER, SELFPAY ==
--- NOTE | 2024-08-02 10:52 | MHC.PT.EP ---
[facility] [place] Office [place] [facility] [place] Office [address] Ozzie Alvarenga [address] [phone] F: [phone] F: [phone] F: [phone] F: [phone] Physical Therapy Plan of Care Date of Evaluation: 08/02/24 Date of Surgery: Diagnosis: This is a 68 yo male presenting to skilled PT with a script for OA of R ankle and foot. Assessment: This is a 68 yo male presenting to skilled PT with a script for OA of R ankle and foot. Patient reporting pain all over the body but is here mainly for his R foot/ankle. Patient reporting he slipped on black ice 3 years ago fracturing his ankle and then missed a step on a ladder 2 years ago fracturing his ankle once again (this was in a different area however per patient). He was in a walking a boot and did not have surgery. He reports ongoing pain now at the medial aspect of the ankle. Pain is dull and aching. His pain is worse when he gets up in the AM, walking more than a block. He reports he attempts to walk to exercise. He walks with a straight cane for pain and balance. He wears a lace up don obed occasionally. He does not drive. He lives alone but has neighbor upstairs. Assessment reveals pain that ranges from up to a 6/10 at the worst. Patient demos decreased ankle and hip ROM, strength of LE's, TTP at medial ankle, impaired balance, gait and impaired posture with forward head and rounded shoulders. Based on functional limitations, impaired QOL and pain tolerance patient is a good candidate for skilled PT 2x/wk for 4wks. Frequency and Duration: The patient will be seen 2x/wk for 4 wks Short Term Goals: (in 2 weeks) Patient will improve ankle AROM by at least 5 degs without assist for DF Patient will demo good understanding and performance of quad set in multiple different planes without cues from PT Patient will be I in HEP Long-Term Goals: (in 4 weeks) Patient will report 75% improvement in balance and strength of LLE as evidenced by reports no of falls or buckling in LE Patient will improve LEFs by 10 points Patient will demo WFL AROM of knee and ankle Patient will demo proper squat and lift techniques without increase in pain Treatment Plan: Modalities to reduce pain, spasms and effusion. Manual therapy to restore motion and function. Therapeutic exercise to improve strength and flexibility. Neuromuscular re-education for posture and balance. Therapeutic activities to return to functional activities of daily living. Electronically signed by: Kayleigh Cueto PT Please sign and return to therapist. Thank you for your referral.
--- NOTE | 2024-10-14 06:38 | MHC.PT.DC ---
[facility] [place] Office [place] [facility] [place] Office [address] Ozzie Alvarenga [address] [phone] F: [phone] F: [phone] F: [phone] F: [phone] Physical Therapy Discharge Report Diagnosis: This is a 68 yo male presenting to skilled PT with a script for OA of R ankle and foot. Date of Surgery: Date of Evaluation: 08/02/24 Date of Discharge: 10/14/24 Treatments to Date: 6 Cancellations to Date: 0 No Shows to Date: 0 Discharge Status: Independent with HEP Patient Elected to Stop Discharge Summary: Patient came to 6 visits of PT. He did not return for more visits after 30 days and his chart was DC. He has an HEP to continue on his own. Electronically signed by: Kayleigh Cueto, PT Please sign and return to therapist. Thank you for your referral.
== END 2024-10-14 06:39 | disposition home or self-care (01) ==
LOC: HO.PTCHIC 10:00
PROVIDERS: PCP Nurse Practitioner Family; Visit Provider Physician Assistant
DX: M19.071 Primary osteoarthritis, right ankle and foot (principal)
CPT/HCPCS: 97110; 97162

== ENCOUNTER 2024-12-14 12:58 | Outpatient (AMB) | payer OTHER, SELFPAY ==
--- NOTE | 2024-12-14 13:18 | A.OFFPC_ITS ---
Vital Signs 12/14/24 13:19 Height 5 ft 7 in Weight 195 lb BMI 30.5 BP 120/66 Blood Pressure Location Rt brachial Position Sitting Respiration 20 Pulse 77 Pulse Source Pulse Oximeter Temp 97.8 F Temp Source Oral Pulse Oximetry (%) 97 Oxygen Delivery Method Room Air Intake Visit Reasons: 4 months f/up Intake Note: Pt is here today for 4 months follow up visit. Allergies ibuprofen [From Motrin] Adverse Reaction (Unknown, Verified 12/14/24 13:19) Gastrointestinal Upset Medication List - Last Reconciled 12/14/24 by Ramin Ariza, DIGITAL PRINTER OPERATOR- aspirin 81 mg PO DAILY 30 days atorvastatin 80 mg PO DAILY blood sugar diagnostic (FreeStyle Lite Strips) check glucose BID blood-glucose meter (FreeStyle Lite Meter kit) check glucose BID comp.stocking,knee,long,medium for edema, please wear daily diclofenac sodium 1% 4 grams topical QID duloxetine 60 mg PO BEDTIME Farxiga (dapagliflozin propanediol) 5 mg PO DAILY NS FreeStyle Jesu 2 [place] (flash glucose scanning reader) TID testing NS FreeStyle Jesu 2 Sensor (flash glucose sensor) TID testing NS [handheld shower head As directed] lancets (FreeStyle Lancets) check glucose BID losartan 25 mg PO DAILY metformin ER 750 mg PO BID 90 days metoprolol succinate ER 25 mg PO DAILY [raised toilet seat As directed] semaglutide 1 mg (0.75 mL) subcut QWEEK sildenafil 25 mg PO DAILY PRN Tobacco use date assessed: 12/14/24 Fall risk assessment: 1 Fall in past year Last assessed Fall Risk: 12/14/24 Dental Screening Dental Screen Date: 12/14/24 Did you have a dental visit in the last 12 months?: Yes Did you have a dental problem in the last 6 months where you did not have access to dental care?: No Was dental information given to patient?: Patient has dentist HPI 4 months f/up HPI Details Chief Complaint Concerns for fall risk and management of diabetes mellitus type 2. History of Present Illness The patient is a 69-year-old male presenting with fall risk assessment and management of diabetes mellitus type 2. His condition is compounded by peripheral neuropathy in his feet, for which he regularly consults a ingredient handler. The patient?s diabetes is currently monitored using occasional checks, with an A1c level of 6.7 noted today. He avoids conventional glucose monitoring due to his refusal to utilize a glucometer and needle. There has been an interest in initiating continuous glucose monitoring; however, insurance barriers have prevented this. Increased dosage of Ozempic has been effective in weight and glucose control. An eye examination is pending as a part of his ongoing diabetes management regimen, and there are no reports of chest pain or shortness of breath at this time. Social History - No specific social history details dis cussed. Health Maintenance - Referral for an eye examination due to diabetes management. - Consideration of continuous glucose mo nitoring technology, pending insurance approval. Review of Systems - Cardiovascular: Denies chest pain, idania rtness of breath. -reports neuropathy to feet, denies poly uria or polydipsia. -denies any si or hi Physical Exam General: Cooperative, healthy appearing, comfortable, no acute distress and well developed Orientation: Patient oriented x3 Limitations: No limitations Head: Normal to inspection Ears: Hearing grossly normal bilaterally Nose: Normal external nose present Face and sinus: Normal facial exam Eyes: Appearance normal, both eyes and all related structures Neck: Normal visual inspection and Yes full ROM Respiratory: Normal respiratory effort and able to speak in complete sentences. Clear to auscultation bilaterally Cardiovascular: Regular rate and rhythm. S1, S2 with a systolic murmur GI: Normal to inspection. Soft to palpation and nontender Skin: No rashes or lesions noted Neuro: Patient oriented x3 Extremities: Onychomycosis noted to bilateral toenails. minimal sensation with use of monofilament, left worse than right Results - Labs: Hemoglobin A1c at 6.7. Plan I plan to increase Ozempic dosage to 1 mg to enhance the management of diabetes mellitus type 2 and support weight control. A referral for an eye exam is targeted to address the diabetic maintenance aspect. Continuous efforts in obtaining insurance coverage for a glucose monitoring sensor are ongoing, given the patient's disinclination towards glucometer use. The patient continues podiatric follow-up to monitor fall risks associated with neuropathy. Discussion Notes During the visit, I addressed the patient's ongoing management of type 2 diabetes mellitus, including the proposed increase in Ozempic to 1 mg, highlighting its benefits in further weight and glycemic control. I informed him of the need for a regular eye exam given his condition, and our conversation included challenges with current glucose monitoring modalities and the continuation of efforts to clear insurance coverage for a more suitable glucose sensor. I underscored the importance of continued foot care with his ingredient handler to mitigate fall risk due to peripheral neuropathy, discussing all relative benefits and alternatives with him. Patient Instructions - Begin using increased Ozempic dose of 1 mg as discussed. - Attend the scheduled eye examination o nce referral is complete. - Await updates on the sensor for glucos e monitoring and continue monitoring glucose as able. - Continue regular appointments with you r ingredient handler to manage foot care. [facility] Medical History History of fibula fracture Coronary artery disease Diabetes mellitus with diabetic neuropathy, without long-term current use of insulin Smoking Atherosclerotic cardiovascular disease Surgical History Status post coronary artery bypass graft History of lumbar discectomy (~1994) History of coronary artery bypass graft (~07/30/18) History of cardiac catheterization (~07/21/18) Family History Father Diabetes Mother Diabetes Myasthenia gravis Maternal Uncle Substance use disorder Mental health disorder Social History Housing: Apartment Patient Tobacco Use Status: Former Tobacco user Cigarettes Per Day: 10 e-Cigarette/Vaping Use: Never Used Second Hand Smoke Exposure: No service: No Current occupational status: retired and disabled Cognitive needs: No Hearing needs: No Vision needs: No Questionnaire PHQ-9 Over the last 2 weeks, how often have you been bothered by any of the following problems? 1. Little interest or pleasure in doing things: more than half the days 2. Feeling down, depressed, or hopeless: more than half the days 3. Trouble falling or staying asleep, or sleeping too much: more than half the days 4. Feeling tired or having little energy: more than half the days 5. Poor appetite or overeating: not at all 6. Feeling bad about yourself - or that you are a failure or have let yourself or your family down: nearly every day 7. Trouble concentrating on things, such as reading the newspaper or watching television: more than half the days 8. Moving or speaking so slowly that other people could have noticed. Or the opposite - being so fidgety or restless that you have been moving around a lot more than usual: several days 9. Thoughts that you would be better off or of hurting yourself in some way: not at all Total score: 14 Depression Screening Interpretation: Positive Depression Screening Done: Yes 08100 - PHQ-9 Billing: Yes Source: Developed by Drs. Alonso Mao, Micheline Hilliard, Dayo Case and colleagues, with an educational yessica from [employer]. Thrive Questionnaire Date Thrive assessed: 12/14/24 I am a: Patient What is your living situation today?: I have a place to live, but I am worried about losing it in the future Within the past 12 months, did the food you bought not last and you didn't have the money to get more?: Never true Within the past 12 months, did you worry whether your food would run out before you got money to buy more?: Never true Do you have trouble paying for medicines?: No Do you have trouble getting transportation to medical appointments?: No Do you have trouble paying your heating and electricity bill?: No Do you have trouble taking care of your child, family member or friend?: No Do you have trouble with day-to-day activities such as bathing, preparing meals, shopping, managing finances, etc.?: Yes Are you currently unemployed and looking for a job?: I choose not to answer this question Are you interested in more education?: No THRIVE Score: 1 AUDIT C Alcohol Use Questionnaire (AUDIT-C) 1. How often do you have a drink containing alcohol?: Never 3. How often do you have six or more drinks on one occasion?: Never Total Score: 0 NEREYDA-7 AMB Questionnaire NEREYDA-7 Date NEREYDA - 7 assessed: 12/14/24 Source: Developed by Drs. Alonso Mao, Micheline Hilliard, Dayo Case and colleagues, with an educational yessica from [employer]. Physical exam (Primary Care) Vital Signs: Last Vital Signs Temp 97.8 F 12/14/24 13:19 Pulse 77 12/14/24 13:19 Resp 20 12/14/24 13:19 BP 120/66 12/14/24 13:19 Pulse Ox 97 12/14/24 13:19 Oxygen Delivery Method Room Air 12/14/24 13:19 BMI result Body Mass Index 30.5 Tobacco/Smoking Status: Tobacco use Status Tobacco use date assessed 12/14/24 12/14/24 13:19 Patient Tobacco Use Status Former Tobacco user 12/14/24 13:19 e-Cigarette/Vaping Use Never Used 12/14/24 13:19 PHQ-9: PHQ-9 Score PHQ-9: Total score 14 12/14/24 14:06 Depression Screening Interpretation: Positive Thrive Assessment: Date of Thrive Assessment Date Thrive assessed 12/14/24 12/14/24 13:19 Results AMB Hemoglobin A1c AMB Hemoglobin A1c 6.7 % Last Edit by SEVERO Altamirano on 12/14/24 14:0 6 Results Reviewed Results Reviewed: Laboratory Last Values Hgb A1c (Clinic) 6.7 % (4.0-6.0) H 12/14/24 14:06 Coding Level of Care Code Est Pt Level 3 (05779) Diagnoses Type 2 diabetes mellitus with diabetic neuropathy, without long-term current use of insulin E11.40 Diabetes mellitus remote computer terminal operator insulin use: without half-way use Diabetes mellitus type: type 2 Smoking F17.200 Additional Codes PHQ-9 - 42636 - PHQ-9 Billing: Yes ([id number]) Assessment & Plan Assessment & Plan (1) Diabetes mellitus with neuropathy: Code(s): E11.40 - Type 2 diabetes mellitus with diabetic neuropathy, unspecified Category: Medical Qualifiers: Diabetes mellitus remote computer terminal operator insulin use: without half-way use Diabetes mellitus type: type 2 Qualified Code(s): E11.40 - Type 2 diabetes mellitus with diabetic neuropathy, unspecified (2) Smoking: Code(s): F17.200 - Nicotine dependence, unspecified, uncomplicated Category: Social Hx Plan . Orders: Orders AMB Hemoglobin A1c Today Z13.9 - Encounter for screening, unspecified Referrals Ophthalmology Referral E11.40 - Type 2 diabetes mellitus with diabetic neuropathy, unspecified Lung Cancer Screening Referral F17.200 - Nicotine dependence, unspecified, uncomplicated Medications: New sildenafil administer 30 minutes to 4 hours before activity 25 mg PO DAILY PRN 10 tabs 0RF sexual activity nicotine 1 patch transdermal DAILY 28 ea 0RF Changed From semaglutide (Ozempic) for 4 weeks 0.5 mg (0.736 mL) subcut QWEEK 3 mL 2RF To semaglutide for 4 weeks 1 mg (0.75 mL) subcut QWEEK 3 mL 2RF
[2024-12-14 13:19] VITALS: BP 120/66; PULSE 77; RESP 20; TEMP 36.6; O2SAT 97; BMI 30.5
--- OUTSIDE RECORDS SUMMARY | 2024-12-14 15:54 | XMS_ITS ---
Author Organization [facility] Address [address] [place] [address] Care Team Providers Care Linotyper Name Role Phone Ramin Lundberg Primary Care Provider Unav ailable Alpa Diamond [phone] Encounters Encounter Location Date Provider Diagnosis [address] [phone] 10/05/2024 Alpa Diamond Plan Of Treatment Next Appt Details Provider Name:Alpa casillas, 12/16/2024 11:00:00 AM, [address] [place] [address], [phone], Progress Notes * Lalito THOMPSON JrDOB:1955 (69 yo M)Acc No.[id number]:10/05/2024 Progress Note Patient:?Lalito THOMPSON Jr Provider:?Alpa Diamond DPM :1955???Age:68 Y???Sex:Male Anthony e:10/05/2024 Address:[address] [place] [address] [id number] Pcp:ZAN Story Subjective: * Chief Complaints: * ??? * Medical History:? Objective: * Vitals:? Assessment: Plan: * Treatment: * Images: * The named appointment provid er may or may not be the originator of this progress note, and it is not deemed complete until electronically signed by the appointment provider. Sign off status: Pending * Provider:?Alpa Diamond DPM Date:? Generated for Bartolo jimenez/Kerwin/Jean on:?12/14/2024 03:54 PM EST
--- OUTSIDE RECORDS SUMMARY | 2024-12-14 15:54 | XMS_ITS | Encounter Summary ---
Author Organization [facility] Address [address] [place] [address] Care Team Providers Care Roller Name Role Phone Unavailable Primary Care Provider Unavailabl e Encounter Details Date Type Department Care Team (Late st Contact Info) Description 09/26/2024 Lab Requisition [facility] Main Lab [address] [place] [id number] Visitacion, Lance Gamez MD [address] [place] [address] Cellulitis of right lower limb Social History Tobacco Use Types Packs/Day Years Used Date Smoking Tobacco: Every Day Cigarettes Alcohol Use Standard Drinks/Week Comments Not Asked 0 (1 standard drink = 0.6 oz pur e alcohol) Sex and Gender Information Value Date Recorded Sex Assigned at Not on file Legal Sex Male 2:45 AM EST Gender Identity Not on file Sexual Orientation Not on file documented as of this encounter Plan of Treatment Not on file documented as of this encounter Procedures Procedure Name Priority Date/Time Associated Diagnosis Comments CBC WITH AUTO DIFFERENTIAL Routine 09/26/2024 6:00 PM EST Cellulitis of right lower limb SEDIMENTATION RATE Routine 09/26/2024 6: 00 PM EST Cellulitis of right lower limb CBC AND DIFFERENTIAL Routine 09/26/2024 6:00 PM EST Cellulitis of right lower limb C-REACTIVE PROTEIN Routine 09/26/2024 6: 00 PM EST Cellulitis of right lower limb COMPREHENSIVE METABOLIC PANEL Routine 09/26/2024 6:00 PM EST Cellulitis of right lower limb documented in this encounter Results * (ABNORMAL) CBC auto differential (09/26/2024 6:00 PM EST) WBC 2.7(L) 3.8 - 10.7 K/mcL LAB HEMETOLOGY METHOD 09/26/2024 6:47 PM EST [facility] RBC 3.98(L) 4.63 - 6.06 M/mcL LAB HEMETOLOGY METHOD 09/26/2024 6:47 PM EST [facility] Hemoglobin 11.6(L) 13.7 - 17.5 g/dL LAB HEMETOLOGY METHOD 09/26/2024 6:47 PM [facility] Hematocrit 34.3(L) 40.1 - 51.0 % LAB HEMETOLOGY METHOD 09/26/2024 6:47 PM [facility] MCV 86.1 81.2 - 99.8 FL LAB HEMETOLOGY METHOD 09/26/2024 6:47 PM [facility] MCH 29.0 26.6 - 34.5 pcg LAB HEMETOLOGY METHOD 09/26/2024 6:47 PM [facility] MCHC 33.7 32.1 - 35.5 g/dL LAB HEMETOLOGY METHOD 09/26/2024 6:47 PM [facility] RDW 14.9 12.4 - 16.2 % LAB HEMETOLOGY METHOD 09/26/2024 6:47 PM [facility] Platelets 190 139 - 358 K/mcL LAB HEMETOLOGY METHOD 09/26/2024 6:47 PM [facility] MPV 8.4 6.8 - 10.7 FL LAB HEMETOLOGY METHOD 09/26/2024 6:47 PM [facility] Neutrophils Relative 46.7 41.0 - 77.0 % LAB HEMETOLOGY METHOD 09/26/2024 6:47 PM [facility] Lymphocytes Relative 34.2 15.0 - 49.0 % LAB HEMETOLOGY METHOD 09/26/2024 6:47 PM [facility] Monocytes Relative 11.3 4.0 - 12.0 % LAB HEMETOLOGY METHOD 09/26/2024 6:47 PM [facility] Eosinophils Relative 6.4 0.0 - 7.0 % LAB HEMETOLOGY METHOD 09/26/2024 6:47 PM [facility] Basophils Relative 1.4 0.0 - 2.0 % LAB HEMETOLOGY METHOD 09/26/2024 6:47 PM [facility] Neutrophils Absolute 1.30 1.30 - 7.60 K/mcL LAB HEMETOLOGY METHOD 09/26/2024 6:47 PM [facility] Lymphocytes Absolute 0.90 0.40 - 4.80 K/mcL LAB HEMETOLOGY METHOD 09/26/2024 6:47 PM [facility] Monocytes Absolute 0.30 0.20 - 1.20 K/mcL LAB HEMETOLOGY METHOD 09/26/2024 6:47 PM [facility] Eosinophils Absolute 0.20 0.00 - 0.50 K/mcL LAB HEMETOLOGY METHOD 09/26/2024 6:47 PM [facility] Basophils Absolute 0.00 0.00 - 0.30 K/mcL LAB HEMETOLOGY METHOD 09/26/2024 6:47 PM [facility] Neutrophil/lymp hocyte ratio 1.4 0.8 - 3.5 LAB HEMETOLOGY METHOD 09/26/2024 6:47 PM EST [facility] Blood Venous blood specimen / Unknown 09/26/2024 6:00 PM EST 09/26/2024 6:42 PM EST Lance Parra MD LAB BLOOD ORDER [place] Final Result [facility] [address] [place] [address], [place] [phone] * (ABNORMAL) Sedimentation rate (09/26/2024 6:00 PM EST) Sed Rate 50(H) 0 - 20 mm/hr LAB HEMETOLOGY METHOD 09/26/2024 6:44 PM EST [facility] Blood Venous blood specimen / Unknown 09/26/2024 6:00 PM EST 09/26/2024 6:42 PM EST Lance Parra MD LAB BLOOD ORDER [place]ERL[place] Final Result Performing Organization Address City/[facility]/ZIP Co de Phone Number [facility] [address] [place] [address], [place] [phone] * (ABNORMAL) C-reactive protein (09/26/2024 6:00 PM EST) CRP 12.6(H) 0.0 - 10.0 mg/L LAB CHEMISTRY METHOD 09/26/2024 7:07 PM EST [facility] Blood Venous blood specimen / Unknown 09/26/2024 6:00 PM EST 09/26/2024 6:42 PM EST Lance Parra MD LAB BLOOD ORDER STERLING Final Result [facility] [address] [place] [address], [place] [phone] * (ABNORMAL) Comprehensive metabolic panel (09/26/2024 6:00 PM EST) Sodium 142 136 - 145 mmol/L LAB CHEMISTRY METHOD 09/26/2024 7:07 PM EST [facility] Potassium 4.0 3.5 - 5.1 mmol/L LAB CHEMISTRY METHOD 09/26/2024 7:07 PM EST [facility] Chloride 105 98 - 107 mmol/L LAB CHEMISTRY METHOD 09/26/2024 7:07 PM [facility] CO2 30 15 - 32 mmol/L LAB CHEMISTRY METHOD 09/26/2024 7:07 PM EST [facility] Anion Gap 7 6 - 14 LAB CHEMISTRY METHOD 09/26/2024 7:07 PM [facility] Glucose 92 70 - 105 mg/dL LAB CHEMISTRY METHOD 09/26/2024 7:07 PM [facility] BUN 21 7 - 25 mg/dL LAB CHEMISTRY METHOD 09/26/2024 7:07 PM [facility] Creatinine 1.35(H) 0.70 - 1.30 mg/dL LAB CHEMISTRY METHOD 09/26/2024 7:07 PM [facility] eGFR 58(L) >=60 mL/min/1. 73m2 LAB CHEMISTRY METHOD 09/26/2024 7:07 PM EST [facility] Comment:Calculation based on the??Chronic Kidney Disease Epidemiology Collaboration (CKD-EPI) equation refit??without adjustment for race. BUN/Creatinine Ratio 15.6 12.0 - 20.0 LAB CHEMISTRY METHOD 09/26/2024 7:07 PM EST [facility] Calcium 9.2 8.6 - 10.3 mg/dL LAB CHEMISTRY METHOD 09/26/2024 7:07 PM [facility] AST (SGOT) 25 10 - 39 unit/L LAB CHEMISTRY METHOD 09/26/2024 7:07 PM [facility] ALT (SGPT) 18 7 - 52 unit/L LAB CHEMISTRY METHOD 09/26/2024 7:07 PM [facility] Alkaline Phosphatase 55 34 - 104 unit/L LAB CHEMISTRY METHOD 09/26/2024 7:07 PM [facility] Total Protein 7.0 6.4 - 8.9 g/dL LAB CHEMISTRY METHOD 09/26/2024 7:07 PM [facility] Albumin 3.9 3.5 - 5.7 g/dL LAB CHEMISTRY METHOD 09/26/2024 7:07 PM [facility] Globulin, Total 3.1 2.7 - 4.3 g/dL LAB CHEMISTRY METHOD 09/26/2024 7:07 PM [facility] Total Bilirubin 0.5 0.1 - 1.0 mg/dL LAB CHEMISTRY METHOD 09/26/2024 7:07 PM [facility] Blood Venous blood specimen / Unknown 09/26/2024 6:00 PM EST 09/26/2024 6:42 PM EST us Lance Parra MD LAB BLOOD ORDER [place]ER[place]ING Final Result [facility] [address] [place] [address], [place] [phone] documented in this encounter Visit Diagnoses Diagnosis Cellulitis of right lower limb documented in this encounter
--- OUTSIDE RECORDS SUMMARY | 2024-12-14 15:54 | XMS_ITS | Patient Health Record ---
Author Organization [facility] Address [address] [place] [address] Care Team Providers Care Automatic Spooler Operator Name Role Phone Ramin Lundberg Primary Care Provider Unav ailable Alpa Diamond Unavailable [phone] Allergies No Known Allergies Results Component Value Reference Range Notes HEMOGLOBIN A1C (GLYCOHEMOGLO BIN) Reviewed date:07/08/2024 10:08:39 AM Interpretation: Performing Lab: Notes/Report: TOTAL HEMOGLOBIN (HGBA1C) 8.8 Reason For Referral No Information Medications Medication SIG (Take, Route, Frequency, Duration) Notes Start Date End Date Status Losartan Potassium 25 MG 1 tablet Orally Once a day Active metFORMIN HCl 1000 MG 1 tablet with a me al Orally Once a day Active Aspirin Active Lancets Active Metoprolol Succinate Active FreeStyle Lite Test Active Extra Depth Orthopedic Shoes (1 Pair) with Customized Heat Molded Multidensity Innersoles (3 Pair) as directed Dx: NIDDM/Polyneuropathy (E11.42), Hammertoe Foot Deformity (M20.41,M20.42), Preulcerative Skin Lesion(s) (L85.1 07/08/2024 Active Lovastatin Active Atorvastatin Calcium Active DULoxetine HCl 60 MG 1 capsule Orally On ce a day Active FreeStyle Jesu 2 [place] Active compression stockings Active Dapagliflozin Propanediol 5 MG 1 tablet Orally Once a day A ctive Social History Tobacco Use: Social History Observation Description Date Details (start date - stop date) Former Smoker NA - NA Tobacco Use/Smoking Question Answer Notes Are you a: former smoker Additional Findings: Tobacco Non-User Current no n-smoker Alcohol Screen Question Answer Notes Did you have a drink containing alcohol in the p ast year? No Points 0 Interpretation Negative Tobacco use other than smoking: Question Answer Notes Are you an other tobacco user? No Problems Problem Type SNOMED Code ICD Code Onset Dates Problem Status W/U Status Risk Notes Problem Acquired hammer toe of right foot (6513474152345885 ) Other hammer toe(s) (acquired), right foot (M20.41) Active confirmed Problem Acquired hammer toe of left foot (4013244330058057 ) Other hammer toe(s) (acquired), left foot (M20.42) Active confirmed Problem Polyneuropathy due to type 2 diabetes mellitus (386144786) Type 2 diabetes mellitus with diabetic polyneuropathy (E11.42) Active confirmed Vital Signs Blood pressure diastolic 83 mm Hg 07/08/2024 Height 5 ft 7 in in 07/08/2024 Blood pressure systolic 140 mm Hg 07/08/2024 Weight 188 lbs 07/08/2024 BMI 29.44 kg/m2 07/08/2024 Encounters Encounter Location Date Provider Diagnosis [address] [address] 07/08/2024 Alpa Diamond Type 2 diabetes mellitus with diabetic polyneuropathy E11.42 ; Other hammer toe(s) (acquired), right foot M20.41 ; Tinea unguium B35.1 and Other hammer toe(s) (acquired), left foot M20.[address] [address] 06/27/2024 Alpa Diamond [facility] [address] 07/11/2024 Alpa Diamond [address] [address] [facility] [address] [address] 10/04/2024 Alpa Diamond Assessments Encounter Date Diagnosis (ICD Code) Assessment Notes Treatment Notes Treatment Clinical Notes Section Notes 07/08/2024 Other hammer toe(s) (acquired), right foot (ICD-10 - M20.41) Patient Educated with: DIABETIC FOOT CARE INSTRUCTIONS. pdf (DIABETIC FOOT CARE INSTRUCTIONS. pdf) 07/08/2024 Type 2 diabetes mellitus with diabetic polyneuropathy (ICD-10 - E11.42) 07/08/2024 Tinea unguium (ICD-10 - B35.1) 07/08/2024 Other hammer toe(s) (acquired), left foot (ICD-10 - M20.42) Plan Of Treatment Next Appt Details Provider Name:Alpa casillas, 12/16/2024 11:00:00 AM, [address] [place] [address], [phone], Insurance Providers Payer Name Payer Address Payer Phone Subscriber Number Group Number Insured Name Patient Relationship to Insured Coverage Start Date Coverage End Date [facility] [employer] Claims [address] [place] [id number] Lalito Thompson Self - patient is the insured Medical (General) History Medical History History ICD Code Anxiety Back,Hip,and Knee pain Broken bones CAD (Cholesterol) covid-19 Depression Diabetic Headaches/Migraines Heart disease High Blood Pressure Keloid/Thick Scar Numbness Psychiatric disorder Sciatica Measles Mumps Chicken pox Vascular grafts Transfusions Surgical History Surgery Date(Month/Year) quad bypass 08/04/18
--- OUTSIDE RECORDS SUMMARY | 2024-12-14 15:54 | XMS_ITS ---
Author Organization [facility] Address [address] [place] [address] Care Team Providers Care Weed Controller Name Role Phone Ramin Lundberg Primary Care Provider Unav ailable Alpa Diamond [phone] REASON FOR VISIT rs from 10/05/24 Encounters Encounter Location Date Provider Diagnosis [address] [address] 10/04/2024 Alpa Diamond Plan Of Treatment Next Appt Details Provider Name:Alpa casillas, 12/16/2024 11:00:00 AM, [address] [place] [address], [phone], Progress Notes * Lalito THOMPSON JrDOB:1955 (68 yo M)Acc No.[id number]:10/04/2024 Patient:?Lalito THOMPSON Jr :1955???Age:68 Y???Sex:Male Address:[address] [place], [place], [address] * true * Date:? Generated for Printi ng/Faoralg/eTransmitting on:?12/14/2024 03:54 PM EST
--- OUTSIDE RECORDS SUMMARY | 2024-12-14 15:54 | XMS_ITS | Clinical Summary ---
Author Organization [facility] Address [address] [place] [address] Phone Care Team Providers Care Getterer Name Role Phone Unavailable Primary Care Provider Unavailabl e Encounters Date Type Department Care Team Description 09/26/2024 Lab Requisition [facility] Main Lab [address] [place] [address] Visitacion, Lance Gamez MD Cellulitis of right lower limb from Last 3 Months Surgical History Surgery Date Site/Laterality Comments BACK SURGERY PROCEDURE: HISTORICAL BACK SURGERY Medical History Medical History Date Comments Knee pain DX:Knee pain Anxiety DX:Anxiety Panic attack DX:Panic attack B12 deficiency DX:B12 deficienc y Vitamin D deficiency DX:Vitamin D deficiency Family History Medical History Relation Name Comments Coronary artery disease Father cabg Parkinson's Disease Mother Relation Name Status Comments Father Mother Social History Tobacco Use Types Packs/Day Years Used Date Smoking Tobacco: Every Day Cigarettes Alcohol Use Standard Drinks/Week Comments Not Asked 0 (1 standard drink = 0.6 oz pur e alcohol) Sex and Gender Information Value Date Recorded Sex Assigned at Not on file Legal Sex Male 2:45 AM EST Gender Identity Not on file Sexual Orientation Not on file Obstetrics History Plan of Treatment Health Maintenance Due Date Last Done Comments DTaP,Tdap,and Td Vaccines (1 - Tdap) 1975 Pneumococcal Vaccine: 50+ Ye ars (1 of 2 - PCV) 1975 Zoster Vaccines (1 of 2) 2006 COVID-19 Vaccine (2023-2 5 season) 2024 Influenza Vaccine (#1) 2024 Abdominal Aortic Aneurysm (A AA) Screen 10/06/2024 Cholesterol Screening (Lipid Panel) 10/06/2024 Colorectal Cancer Screening: Colonoscopy 10/06/2024 Depression Screening 10/06/2024 Falls Risk Assessment 10/06/2024 Hepatitis C Screening 10/06/2024 Medicare Annual Wellness Visit 10/06/2024 Social Influencers of Health Screening 10/06/2024 RSV Immunization Patients 60 + Years Old (1 - 1-dose 75+ series) 2031 HIB Vaccines Aged Out No longer eligi ble based on patient's age to complete this topic HPV Vaccines Aged Out No longer eligi ble based on patient's age to complete this topic Hepatitis A Vaccines Aged Out No long er eligible based on patient's age to complete this topic Hepatitis B Vaccines Aged Out No long er eligible based on patient's age to complete this topic IPV Vaccines Aged Out No longer eligi ble based on patient's age to complete this topic MMR Vaccines Aged Out No longer eligi ble based on patient's age to complete this topic Meningococcal ACWY Vaccine Aged Out N o longer eligible based on patient's age to complete this topic Meningococcal B Vacine Aged Out No lo nger eligible based on patient's age to complete this topic RSV Immunization Patients Un kesha 20 months Aged Out No longer eligible b ased on patient's age to complete this topic Varicella Vaccines Aged Out No longer eligible based on patient's age to complete this topic Procedures Procedure Name Priority Date/Time Associated Diagnosis [...] PM EST Cellulitis of right lower limb from Last 3 Months Results * (ABNORMAL) CBC auto differential (09/26/2024 6:00 PM EST) [facility] WBC 2.7(L) 3.8 - 10.7 K/mcL LAB HEMETOLOGY METHOD 09/26/2024 6:47 PM EST [facility] RBC 3.98(L) 4.63 - 6.06 M/mcL LAB HEMETOLOGY METHOD 09/26/2024 6:47 PM EST [facility] Hemoglobin 11.6(L) 13.7 - 17.5 g/dL LAB HEMETOLOGY METHOD 09/26/2024 6:47 PM [facility] Hematocrit 34.3(L) 40.1 - 51.0 % LAB HEMETOLOGY METHOD 09/26/2024 6:47 PM [facility] MCV 86.1 81.2 - 99.8 FL LAB HEMETOLOGY METHOD 09/26/2024 6:47 PM [facility] MCH 29.0 26.6 - 34.5 pcg LAB HEMETOLOGY METHOD 09/26/2024 6:47 PM [facility] MCHC 33.7 32.1 - 35.5 g/dL LAB HEMETOLOGY METHOD 09/26/2024 6:47 PM [facility] RDW 14.9 12.4 - 16.2 % LAB HEMETOLOGY METHOD 09/26/2024 6:47 PM [facility] Platelets 190 139 - 358 K/mcL LAB HEMETOLOGY METHOD 09/26/2024 6:47 PM [facility] MPV 8.4 6.8 - 10.7 FL LAB HEMETOLOGY METHOD 09/26/2024 6:47 PM [facility] Neutrophils Relative 46.7 41.0 - 77.0 % LAB HEMETOLOGY METHOD 09/26/2024 6:47 PM [facility] Lymphocytes Relative 34.2 15.0 - 49.0 % LAB HEMETOLOGY METHOD 09/26/2024 6:47 PM [facility] Monocytes Relative 11.3 4.0 - 12.0 % LAB HEMETOLOGY METHOD 09/26/2024 6:47 PM [facility] Eosinophils Relative 6.4 0.0 - 7.0 % LAB HEMETOLOGY METHOD 09/26/2024 6:47 PM [facility] Basophils Relative 1.4 0.0 - 2.0 % LAB HEMETOLOGY METHOD 09/26/2024 6:47 PM [facility] Neutrophils Absolute 1.30 1.30 - 7.60 K/mcL LAB HEMETOLOGY METHOD 09/26/2024 6:47 PM [facility] Lymphocytes Absolute 0.90 0.40 - 4.80 K/mcL LAB HEMETOLOGY METHOD 09/26/2024 6:47 PM [facility] Monocytes Absolute 0.30 0.20 - 1.20 K/mcL LAB HEMETOLOGY METHOD 09/26/2024 6:47 PM [facility] Eosinophils Absolute 0.20 0.00 - 0.50 K/mcL LAB HEMETOLOGY METHOD 09/26/2024 6:47 PM [facility] Basophils Absolute 0.00 0.00 - 0.30 K/mcL LAB HEMETOLOGY METHOD 09/26/2024 6:47 PM [facility] Neutrophil/lymp hocyte ratio 1.4 0.8 - 3.5 LAB HEMETOLOGY METHOD 09/26/2024 6:47 PM [facility] Blood Venous blood specimen / Unknown 09/26/2024 6:00 PM EST 09/26/2024 6:42 PM EST us Lance Parra MD LAB BLOOD ORDER STERLING Final Result [facility] [address] [place] [address], [place] [phone] * (ABNORMAL) Sedimentation rate (09/26/2024 6:00 PM EST) Sed Rate 50(H) 0 - 20 mm/hr LAB HEMETOLOGY METHOD 09/26/2024 6:44 PM EST [facility] Blood Venous blood specimen / Unknown 09/26/2024 6:00 PM EST 09/26/2024 6:42 PM EST Lance Parra MD LAB BLOOD ORDER STERLING Final Result Performing Organization Address City/[facility]/ZIP Co de Phone Number [facility] [address] [place] [address], [place] [phone] * (ABNORMAL) C-reactive protein (09/26/2024 6:00 PM EST) [facility] CRP 12.6(H) 0.0 - 10.0 mg/L LAB CHEMISTRY METHOD 09/26/2024 7:07 PM EST [facility] Blood Venous blood specimen / Unknown 09/26/2024 6:00 PM EST 09/26/2024 6:42 PM EST us Lance Parra MD LAB BLOOD ORDER STERLING Final Result [facility] [address] [place] [address], [place] [phone] * (ABNORMAL) Comprehensive metabolic panel (09/26/2024 6:00 PM EST) Pathologist [facility] Sodium 142 136 - 145 mmol/L LAB CHEMISTRY METHOD 09/26/2024 7:07 PM [facility] Potassium 4.0 3.5 - 5.1 mmol/L LAB CHEMISTRY METHOD 09/26/2024 7:07 PM [facility] Chloride 105 98 - 107 mmol/L LAB CHEMISTRY METHOD 09/26/2024 7:07 PM [facility] CO2 30 15 - 32 mmol/L LAB CHEMISTRY METHOD 09/26/2024 7:07 PM [facility] Anion Gap 7 6 - 14 LAB CHEMISTRY METHOD 09/26/2024 7:07 PM [facility] Glucose 92 70 - 105 mg/dL LAB CHEMISTRY METHOD 09/26/2024 7:07 PM [facility] BUN 21 7 - 25 mg/dL LAB CHEMISTRY METHOD 09/26/2024 7:07 PM [facility] Creatinine 1.35(H) 0.70 - 1.30 mg/dL LAB CHEMISTRY METHOD 09/26/2024 7:07 PM [facility] eGFR 58(L) >=60 mL/min/1. 73m2 LAB CHEMISTRY METHOD 09/26/2024 7:07 PM [facility] Comment:Calculation based on the??Chronic Kidney Disease Epidemiology Collaboration (CKD-EPI) equation refit??without adjustment for race. BUN/Creatinine Ratio 15.6 12.0 - 20.0 LAB CHEMISTRY METHOD 09/26/2024 7:07 PM [facility] Calcium 9.2 8.6 - 10.3 mg/dL LAB CHEMISTRY METHOD 09/26/2024 7:07 PM [facility] AST (SGOT) 25 10 - 39 unit/L LAB CHEMISTRY METHOD 09/26/2024 7:07 PM [facility] ALT (SGPT) 18 7 - 52 unit/L LAB CHEMISTRY METHOD 09/26/2024 7:07 PM [facility] Alkaline Phosphatase 55 34 - 104 unit/L LAB CHEMISTRY METHOD 09/26/2024 7:07 PM EST [facility] Total Protein 7.0 6.4 - 8.9 g/dL LAB CHEMISTRY METHOD 09/26/2024 7:07 PM EST [facility] Albumin 3.9 3.5 - 5.7 g/dL LAB CHEMISTRY METHOD 09/26/2024 7:07 PM [facility] Globulin, Total 3.1 2.7 - 4.3 g/dL LAB CHEMISTRY METHOD 09/26/2024 7:07 PM [facility] Total Bilirubin 0.5 0.1 - 1.0 mg/dL LAB CHEMISTRY METHOD 09/26/2024 7:07 PM [facility] Blood Venous blood specimen / Unknown 09/26/2024 6:00 PM EST 09/26/2024 6:42 PM EST Lance Parra MD LAB BLOOD ORDER STERLING Final Result [facility] [address] [place] [address], [place] [phone] from Last 3 Months Insurance [place]ARE
--- OUTSIDE RECORDS SUMMARY | 2024-12-14 15:54 | XMS_ITS | Data Portability ---
Author Organization [facility] Address [address] [place] [phone] Care Team Providers Care Improvement Coordinator Name Role Phone HIM EDITA OTHER Assessment Encounter Date Assessment Date Assessment LastModified by Organization Details LastModified Time 06/15/2024 06/15/2024 As noted, we were called to see this patient regarding concerns of dysuria and hyperglycemia. Evaluation in the field was performed by my grinder set up operator internal colleague, as noted above, I provided real-time direction and supervision for this visit. The evaluation revealed same. Impression: 68yo/m with multiple medical problems including CAD, DM, obesity, COPD evaluated by medic in home for 3 days of dysuria and urinary frequency, as well as elevated BS at home. For medic in home patient is awake, alert, in no distress. States has difficulty checking BS on a regular basis. No other associated illness, no fevers/chills, nausea/vomiting , chest pain, dyspnea, abdominal pain. Eating and drinking normally, ambulating at baseline. He does state for past 3 days has noticed some burning sensation with urination and urinating more frequently. No other associated symptoms at this time. Of note, medic checked BS in home and is 409. Plan: Patient underwent urine dip and POC labs, his glucose had a large discrepancy with his fingerstick, glucose in the 200s, has slightly elevated AG but normal bicarb and electrolytes. No clinical signs or symptoms of DKA. Urine is positive for UTI, he states no history of resistance UTIs in past, will start on rx of keflex and send urine for culture. Patient counseled extensively on signs and symptoms for followup and his diabetes care. No other signs or symptoms of illness at this time, I have a low clinical suspicion for an occult emergency medical condition such as pyelonephritis, appendicitis, SBO, sepsis. Primary care, consider urine culture followup and continued diabetes checks Disposition: We discussed the diagnostic uncertainty of home visits and the risk associated with this. In this case, the patient and I felt this to be an acceptable and reasonable amount of risk given the benefit of avoiding an ED visit. We discussed the need to seek care urgently/emerge ntly in the setting of any new or worsening serious symptoms, particularly any signs or symptoms of worsening illness including above. [email or web address] Not available 06/15/2024 16:28:12 Plan of Treatment Reminders Order Date Submit Date Provider Last Modified By Organization Details Last Modified Time Details Appointments None recorded. Lab urinalysis, dipstick 2023 rsullivan [address] [facility], [address] [place] [address], [id number], 15:48:40 BMP, serum or plasma 2023 024 rsullivan [facility], [address] [place] [address], [phone], 15:48:45 culture, urine 2023 024 QUENTIN [facility] (Centralized Electronic Ordering - All Locations), Patient Can Go To The Location Of Their Choice, [facility] 10:06:06 BMP, serum or plasma 2023 024 gbaci [facility], [address] [place] [address], [address], 4 20:28:57 hemoglobin + hematocrit, blood 2023 024 [facility] [address] [place] [address], [phone], 20:29:16 Referral None recorded. Procedures None recorded. Surgeries None recorded. Imaging None recorded. Medication Orders cephalexin 500 mg capsule 2023 024 rsullivan 84 [id number], [address] [place], [address], 15:48:15 cephalexin 500 mg tablet 2023 024 QUENTIN [id number], [address] [place], [address], 4 15:49:50 lactated Ringers intravenous solution 2023 024 gbaci Not available 4 20:23:18 metformin ER 1,000 mg 24 hr tablet,exte nded release (gastric reten.) 2023 024 QUENTIN [id number], [address] [place], [address], 4 20:27:58 Patient TargetsNo targets recorded. Patient InstructionsNo instructions recorded. Reason for Referral None Reported. Results Created Date Observation Date Name Description Value Unit Range Abnormal Flag Note LastModifiedBy Organization Detail LastModifiedTime 03/10/20 24 03/10/2024 hemog lobin + hemat ocrit , blood Hemoglobin 13.3 Not Available [facility] [address] [place] [address], [phone], 03/10/2024 20:29:03 03/10/20 24 03/10/2024 hemog lobin + hemat ocrit , blood Hematocrit 39 Not Available [facility] [address] [place] [address], [address], 03/10/2024 20:29:03 03/10/20 24 03/10/2024 BMP, serum or plasm a BUN 25 Not Available [facility] [address], [address], 03/10/2024 20:23:01 03/10/20 24 03/10/2024 BMP, serum or plasm a Ca 1.2 Not Available [facility] - [facility] [address], [address], 03/10/2024 20:23:01 03/10/20 24 03/10/2024 BMP, serum or plasm a CI- 102 Not Available [facility] - [facility] [address], [address], 03/10/2024 20:23:01 03/10/20 24 03/10/2024 BMP, serum or plasm a CRE 1.0 Not Available [facility] - [facility] [address], [address], 03/10/2024 20:23:01 03/10/20 24 03/10/2024 BMP, serum or plasm a GLU 316 Not Available [facility] - [facility] [address], [address], 03/10/2024 20:23:01 03/10/20 24 03/10/2024 BMP, serum or plasm a K+ 4.1 Not Available [facility] - [facility] [address], [address], 03/10/2024 20:23:01 03/10/20 24 03/10/2024 BMP, serum or plasm a Na+ 140 Not Available [facility] - [facility] [address], [address], 03/10/2024 20:23:01 03/10/20 24 03/10/2024 BMP, serum or plasm a tCO2 26 Not Available [facility] - [facility] [address], [address], 03/10/2024 20:23:01 06/15/20 24 06/18/2024 URINE CULTU RE,CO MPREH ENSIV E urine culture,comp rehensive Final report abnormal Not Available [facility] ([facility]) [address] [facility], [place], [address], 06/18/2024 10:06:06 06/15/20 24 06/18/2024 URINE CULTU RE,CO MPREH ENSIV E result 1 COMMEN T abnormal Staph yloco ccus epide rmidi s 50,00 0-100 ,000 colon y formi ng units per mL Based on susce ptibi lity to oxaci llin this isola te would be susce ptibl e to: *Peni cilli nase- stabl e penic illin s, such as: Cloxa cilli n, Diclo xacil kaushik, Nafci llin *Beta -lact am combi natio n agent s, such as: Amoxi cilli n-cla vulan ic acid, Ampic illin -sulb actam , Piper acill in-ta zobac nunes *Oral cephe ms, such as: Cefac manolo, Cefdi aristides, Cefpo doxim e, Cefpr ozil, Cefur oxime , Cepha lexin , Lorac arbef *Pare ntera l cephe ms, such as: Cefaz nathen, Cefep merlene, Cefot axime , Cefot isai, Cefta rolin e, Cefti zoxim e, Ceftr iaxon e, Cefur oxime *Carb apene ms, such as: Dorip enem, Ertap enem, Imipe nem, Merop enem Not Available [facility] ([facility]) [address] [place], [address], 06/18/2024 10:06:06 06/15/2006/18/2024 URINE CULTU RE,CO MPREH ENSIV E antimicrobia l susceptibili ty Commen t S = Susce ptibl e; I = Inter media te; R = Resis tant P = Posit peña; N = Negat peña MICS are expre ssed in micro grams per mL Antib iotic RSLT# 1 RSLT# 2 RSLT# 3 RSLT# 4 Cipro floxa bree S Genta micin S Levof loxac in S Linez olid S Moxif loxac in S Nitro furan toin S Oxaci llin S Penic illin R Quinu prist in/Da lfopr istin S Rifam pin S Tetra cycli ne S Trime thopr im/Walsh lfa S Vanco mycin S Not Available [facility] ([facility]) [address] [place], [address], 06/18/2024 10:06:06 Result Notes None recorded. Medical Equipment None Reported. Allergies Allergen ID Allergen Name Allergen Category Reaction Reaction Severity Criticality Documentation Date Start Date Code Code System Note Provider Name and Address Organization Details Recorded Time 6011 Motrin medicatio n rash Not available Not available 06/15/2024 8 RxNorm Ezekiel Sparks MD [address] [facility],[address], [place], [address], [facility] ARAM SHAIKH 15:44:24 Medications Name Sig Start Date Stop Date Status Note LastModified by Organization Details LastModified Time atorvastatin 80 mg tablet TAKE 1 TABLET BY MOUTH EVERY DAY *MAKE APPIONTMENT FOR MORE REFILLS* active Not Available Not Available No t Available naltrexone 50 mg tablet TAKE 1 TABLET BY MOUTH EVERY DAY active Not Available Not Available No t Available lactated Ringers intravenous solution Inject 1000 mL by intravenous route. 2023 active Not Available Not Available Not Avai lable cephalexin 500 mg capsule TAKE 1 CAPSULE BY MOUTH TWICE A DAY FOR 7 DAYS active Not Available Not Available No t Available losartan 25 mg tablet TAKE 1 TABLET BY MOUTH EVERY DAY active Not Available Not Available No t Available cephalexin 500 mg tablet Take 1 tablet twice a day by oral route, for 7 days. 2023 active Not Available Not Available Not Avai lable metoprolol succinate ER 25 mg tablet,exten ded release 24 hr TAKE 1 TABLET BY MOUTH EVERY DAY active Not Available Not Available No t Available naproxen 500 mg tablet TAKE 1 TABLET BY MOUTH TWICE A DAY active Not Available Not Available No t Available metformin ER 750 mg tablet,exten ded release 24 hr TAKE 1 TABLET BY MOUTH TWICE A DAY FOR 90 DAYS active Not Available Not Available No t Available duloxetine 30 mg capsule,sabina yed release TAKE 1 CAPSULE BY MOUTH EVERY DAY active Not Available Not Available No t Available duloxetine 60 mg capsule,sabina yed release TAKE 1 CAPSULE BY MOUTH TWICE A DAY active Not Available Not Available No t Available FreeStyle Range Lite kit active Not Available Not Available Not Available diclofenac 1 % topical gel APPLY 4 GRAMS TO SINGLE KNEE, ANKLE & FOOT 4 TIMES A DAY FOR 30 DAYS active Not Available Not Available Not Available metformin ER 1,000 mg 24 hr tablet,exten ded release (gastric reten.) TAKE 1 TABLET BY MOUTH EVERY DAY FOR 30 DAYS active Not Available Not Available No t Available buprenorphin e 8 mg-naloxone 2 mg sublingual film DISSOLVE 1 FILM UNDER TONGUE TWICE A DAY active Not Available Not Available Not Available Farxiga 5 mg tablet TAKE 1 TABLET BY MOUTH EVERY DAY active Not Available Not Available No t Available Ozempic 0.25 mg or 0.5 mg (2 mg/3 mL) subcutaneous pen injector 0.5 MG (0.736 ML) SUBCUTANEOU SLY EVERY WEEK FOR 4 WEEKS active Not Available Not Available No t Available Vitals Date Recorded Respiratory rate Body height Oxygen saturation Oxygen saturation in Arterial blood by Pulse oximetry Heart rate Body weight Body temperature Systolic blood pressure Diastolic blood pressure Provider Name and Address Organization Details Last Updated DateTime 4 16 /min 172.72 cm 96 % 96 % 98 /min 81040.2 8 g 97.7 [degF] 134 mm[Hg] 71 mm[Hg] Not Available [employer] 4 20:17:18 Date Recorded Oxygen saturation Oxygen saturation in Arterial blood by Pulse oximetry Body height Heart rate Body temperature Body weight Respiratory rate Systolic blood pressure Diastolic blood pressure Provider Name and Address Organization Details Last Updated DateTime 4 95 % 95 % 170.18 cm 95 /min 98 [degF] 90653.4 4 g 18 /min 156 mm[Hg] 90 mm[Hg] Not Available [employer] 4 15:18:08 Social History None recorded. Functional Status None recorded. Mental Status None recorded. Family History Nothing Reported. Medical History No medical history recorded. Past Encounters Encounter ID Performer Location Encounter Start Date Encounter Closed Date Diagnosis/Indication Diagnosis SNOMED-CT Code Diagnosis ICD10 Code Diagnosis Note [id number] TRESA SUAREZ MD Main - [address] [address] 03/10/2024 20:17:04 03/11/2024 10:35:31 Hyperglycemia due to type 2 diabetes mellitus 0868834094 32470 E11.65 Evaluation in the field was performed by my grinder set up operator internal colleague, as noted above, I provided real-time direction and supervisio n for this visit. The evaluation revealed 68 yo meln with recent diagnosis of Type 2 DM on Metformin ER 850 mg at night with elevated BG to 200-400 in the last week or so. Denies headache, dizziness, vomiting, diarrhea. Reports mild nausea. Also reports that he needs to have his nails trimmed since the big toe ones are long and he was trying to trim it himself last night .VS stableBMP with normal electrolyt es, bicarb 26, BUN 25, Creat 1.0 and Glucose 316 Impression :Hyperglyc emia in the setting of newly diagnosed Type 2 DM Plan:The patient had taken his dose of Metformin 850 mg 45 minutes ago. He was advised to take an extra 1/2 tablet now.A prescripti on for the new dose of 1000 mg daily was sent to his pharmacy. The patient was advised to discard the old dose.Admin ister 1 L of LR now.The patient was advised to call his PCP in the morning to discuss the new dose, the possible need for insulin initiation , and a podiatry referral. He was advised not to trim his nails himself, as it can cause infection if he breaks the skin.Red flags were discussed with the patient. Primary care, considerin itiation of Insulin given elevated BG .Please refer pt to podiatry for nail care to avoid infection Dispositio n: We discussed the diagnostic uncertaint y of home visits and the risk associated with this. In this case, the patient and I felt this to be an acceptable and reasonable amount of risk given the benefit of avoiding an ED visit. We discussed the need to seek care urgently/e mergently in the setting of any new or worsening serious symptoms, particular ly weakness, fatigue, nausea, vomiting, diarrhea, ongoing elevated BG >400 , fever, chills or any other concerns. [id number] Ezekiel Sparks MD [facility] [address] [place] [phone] 06/15/2024 15:18:05 06/15/2024 22:38:34 Dysuria 60249567 R30.0 Health Concerns Section Related Observation LastModified by Organization Detai ls LastModified Time None Recorded Concern Status LastModified by Organization Details LastModified Time None Recorded Advance Directives Directive None Recorded Payers Encounter Date Sequence Insurance Name Policy Number Policy Lazo Covered Member ID Lazo Member ID Guarantor Name 03/10/2024 1 [facility] - DOS ON OR AFTER 2023 - DUAL ELIGIBLE - [employer] OPTIONS AND ONE CARE (MEDICARE REPLACEMENT/ADV ANTAGE - HMO) Lalito Thompson [id number] Lalito Thompson 06/15/2024 1 [facility] - DOS ON OR AFTER 2023 - DUAL ELIGIBLE - [employer] OPTIONS AND ONE CARE (MEDICARE REPLACEMENT/ADV ANTAGE - HMO) Lalito Thompson [id number] Lalito Call Jackiearaceli Notes Date Note Type Note Provider Name and Address Organization Details Recorded Time 03/10/2024 text/html CRC Nurse Triage Notes (Rex Smart): Reason For Request: sugar not controlled/feet hurting Chief Complaints: Diabetes Related, Pain Allergies: Unknown Comments: Systems Support Specialist verified the member's name//address and phone number. Mbr reports he was recently informed that he is diabetic by his doctor. Mbr reports my blood sugars are like a roller coaster . Mbr states currently on Metformin at night. Member also states my feet are a mess . Mbr states I noticed some discoloration of R foot. Mbr states he also believes he has broken a leg twice but did not have it reset , states that was a couple years ago though . Mbr reports increased numbness to R foot as well. Education provided on the response time and the member was advised to monitor reported s/s and seek emergency treatment if needed -HArnel Smart, RN [employer] POC Test Results from Mikey Meléndez - LESIA iSTAT Chem8+ (1) [21:30] Na: 140 mEq/L K: 4.1 mEq/L Cl: 102 mEq/L iCa: 1.20 mmol/L TCO2: 26 mmol/L Glu: 316 mg/dL BUN: 25 mg/dL Crea: 1.0 mg/dL Hct: 39 % Hb: 13.3 g/dL A ................... ................... ................... ................... ................... ................... ................... ........ [employer]er [employer] Note From Mikey Meléndez: [facility] visit for male patient with high blood sugars and foot wound. Pt presents conscious and alert. Pt reports stopping his metformin due to losing his insurance. Unclear duration pt saw PCP about 3 weeks ago and restarted on metformin. Pt's sugars have been consistently 200-400mg/dl. Pt also has chronic big toe wound on right foot. Foot examined and in need of podiatry. Pt told to follow up with PCP for referral. Fingerstick glucose 363. V/S taken as listed. Pt afebrile. IV placed and BMP labs drawn. Uploaded BMP to [facility]. Consulted with Dr. Suarez who instructed pt to take an additional half tablet of metformin and give 1 liter LR administered on scene. Pt told to follow up with PCP as metformin is not managing blood sugar. Reviewed red flags for ED. Patient education provided. ................... ................... ................... ................... ................... ................... ................... ........ Disposition: Fulfilled TRESA SUAREZ MD [address] [place] [address],[address], [place], [address], [facility] 03/10/2024 21:49:38 06/15/2024 text/html HPI: Mikayla is a 68 yo male with hx of HLD, HTN, CPTSD, MDD, Opiate dependence, post aortocoronary bypass graft, CAD, Type 2 DM, Morbid Obesity, ETOH dep in remission, NEREYDA and COPD. Allergies to Motrin. Mbr service rep calling in with mikayla on the line due to medical concerns. Spoke with Mikayla who reported that he had Covid in April but does not have it now however mbr states since Thursday he has been urinating every hour clear light yellow urine and not sleeping well. Mbr states he does get some pain with urination. Mbr denies fever or chest pain. Mbr states he has a little sob once in a while. Mbr has hx of COPD. Mbr speaking in clear full sentences and alert and oriented. . Mbr stated his BSs have been all over the place. but could not recall the last result. Offered [facility] and he agreed. Instructed Mbr to call 911 and go to ER if he develops worsening s/s, increased SOB and fever. Mbr agreed to do. Confirmed address and phone/[phone]. ................... ................... ................... ................... ................... ................... ................... ........ CRC Nurse Triage Notes (April Polk): Chief Complaints: Diabetes Related, UTI/Pyelonephritis, Weakness/Lethargy, Shortness of Breath/Dyspnea PMH: COPD/Asthma, Diabetes, Hypertension, Heart Disease Other Allergies: Motrin Comments: HPI reviewed. No further information needed to process visit. [employer] Organization Information for Mikey Meléndez Business Legal Name: [employer]? Address: [address] [place] [address], Steam Generating Powerplant Mechanic: Jim Pisano MD CLIA No.: [id number] [employer] POC Test Results from Mikey Meléndez Blood Glucose Measurement (15:34:21) Blood Glucose: 252 mg/dL Urine Dipstick (15:34:35) Urine leukocytes: +++ HANANE Urine nitrites: + NIT Urine urobilinogen: - URO Urine protein: + PRO Urine pH: 9.0 pH Urine blood: +++ BLO Urine specific gravity: 1.010 SG Urine ketones: +/- KET Urine bilirubin: - ALLISON Urine glucose: - GLU iSTAT Chem8+ (15:36:29) Na: 136 mEq/L K: 4.7 mEq/L Cl: 101 mEq/L iCa: 1.14 mmol/L TCO2: 24 mmol/L Glu: 228 mg/dL BUN: 11 mg/dL Crea: 0.8 mg/dL Hct: 37 % Hb: 12.6 g/dL A ................... ................... ................... ................... ................... ................... ................... ........ Cooker Sulfate Note [facility] Mikey Mel[facility]dez[facility]. Pt complains of 3 days of burning and urinary frequency. Pt also states his sugars have been all over the place though he does not have a glucometer at home to use. Pt was able to provide urine specimen with findings of + leukocytes, nitrates, and blood consistent with UTI. V/S taken as listed. Pt afebrile. Finger stick glucose 252 mg/dl. Consulted with [facility] Dr. Sparks who ordered BMP. IV placed and blood drawn. BMP results uploaded to [facility]. Dr. Sparks ordered 500 mg of oral cephalexin. Urine culture specimen obtained and brought to [facility]. Reviewed red flags for ED. Pt education provided. [facility] Lab Orders: urinalysis, dipstick: Performed ................... ................... ................... ................... ................... ................... ................... ........ Disposition: Fulfilled Ezekiel Sparks MD [address] [facility],[address], [place], [phone], [facility]AM SHAIKH 06/15/2024 17:40:11
--- OUTSIDE RECORDS SUMMARY | 2024-12-14 15:54 | XMS_ITS ---
Author Organization [facility] Address [address] [place] [address] Care Team Providers Care Tram Inspector Name Role Phone Ramin Lundberg Primary Care Provider Unav ailable Alap Diamond [phone] Encounters Encounter Location Date Provider Diagnosis [address] [phone] 09/21/2024 Alpa Diamond Plan Of Treatment Next Appt Details Provider Name:Alpa casillas, 12/16/2024 11:00:00 AM, [address] [place] [address], [phone], Progress Notes * Lalito THOMPSON JrDOB:1955 (69 yo M)Acc No.[id number]:09/21/2024 Progress Note Patient:?Lalito THOMPSON Jr Provider:?Alpa Diamond DPM :1955???Age:68 Y???Sex:Male Anthony e:09/21/2024 Address:[address] [place] [address] [id number] Pcp:ZAN Story Subjective: * Chief Complaints: * ??? * Medical History:? Objective: * Vitals:? Assessment: Plan: * Treatment: * Images: * The named appointment provid er may or may not be the originator of this progress note, and it is not deemed complete until electronically signed by the appointment provider. Sign off status: Pending * Provider:?Alpa Diamond DPM Date:?01/2024 Generated for Bartolo jimenez/Kerwin/Jean on:?12/14/2024 03:54 PM EST
== END 2024-12-14 14:12 | disposition home or self-care (01) ==
PROVIDERS: PCP Nurse Practitioner Family; Visit Provider Nurse Practitioner Family
DX: E11.40 Type 2 diabetes mellitus with diabetic neuropathy, unspecified (principal); F17.200 Nicotine dependence, unspecified, uncomplicated; Z13.9 Encounter for screening, unspecified

== ENCOUNTER → 2024-12-14 12:58 | Outpatient (BNVA) | payer OTHER, SELFPAY | PROVIDERS: PCP Nurse Practitioner Family; Visit Provider Nurse Practitioner Family | DX: E11.40 Type 2 diabetes mellitus with diabetic neuropathy, unspecified (principal); F17.200 Nicotine dependence, unspecified, uncomplicated; Z71.6 Tobacco abuse counseling | CPT/HCPCS: 83036; 96127; 99212 ==

== ENCOUNTER 2025-03-10 13:00 | Outpatient (REF) | payer OTHER, SELFPAY ==
--- NOTE | ~2025-03-10 | CT_ITS ---
CLINICAL HISTORY: Z87.891 - Personal history of nicotine dependence CT lung cancer screening (LDCT) Comparison: None Technique: Axial CT images of the chest using low-dose technique. Referring provider counseled the patient on shared decision-making for LDCT screening. Additional counseling was provided on smoking cessation. Effective radiation dose total: DLP 92.2 mGycm, CTDIvol 2.2 mGy. Findings: Lung: No solid or semi solid lesions Coronary artery calcifications: Severe Limited upper abdomen: Unremarkable Other: Mild right middle lobe bronchiectasis with associated scarring or subsegmental atelectasis Impression: Category 1: Normal; continue annual screening Category 1: Normal; continue annual screening Category 2: Benign appearance or behavior, continue annual screening Category 3: Probably benign, [address] recommended Category 4A: Suspicious, [address] recommended; may consider PET/CT Category 4B: Suspicious, Additional diagnostics and/or tissue sampling recommended Category 4X: Suspicious, Additional diagnostics and/or tissue sampling recommended Category 0: Recalls (incomplete screen due to Incomplete coverage, Noise, Respiratory motion, Expiration, Obscured by acute abnormality) This document has been electronically signed by: Lalito Parks MD on 03/10/2025 18:13:37
--- OUTSIDE RECORDS SUMMARY | 2025-03-10 13:05 | XMS_ITS ---
Author Organization [facility] Address [address] [place] [address] Care Team Providers Care Technology Services Manager Name Role Phone Ramin Lundberg Primary Care Provider Unav ailable Alpa Diamond Unavailable [phone] Allergies No Known Allergies REASON FOR VISIT At Risk Footcare, Toe Irritation, Skin Problem Medications Medication SIG (Take, Route, Frequency, Duration) Notes Start Date End Date Status compression stockings Active Dapagliflozin Propanediol 5 MG 1 tablet Orally Once a day A ctive DULoxetine HCl 60 MG 1 capsule Orally On ce a day Active FreeStyle Jesu 2 Jewett Active Lancets Active Extra Depth Orthopedic Shoes (1 Pair) with Customized Heat Molded Multidensity Innersoles (3 Pair) as directed Dx: NIDDM/Polyneuropathy (E11.42), Hammertoe Foot Deformity (M20.41,M20.42), Preulcerative Skin Lesion(s) (L85.1 07/08/2024 Active Losartan Potassium 25 MG 1 tablet Orally Once a day Active metFORMIN HCl 1000 MG 1 tablet with a me al Orally Once a day Active Aspirin Active Lovastatin Active Atorvastatin Calcium Active Metoprolol Succinate Active FreeStyle Lite Test Active Ciclopirox Olamine 0.77 % 1 application Externally Twice a day to skin of feet including between the toes for 30 days Active Social History Tobacco Use: Social History Observation Description Date Details (start date - stop date) Current Smoker 11/19/2014 - NA Tobacco use other than smoking: Question Answer Notes Are you an other tobacco user? No Tobacco Control (Standard) Question Answer Notes Tobacco use: Current smoker When did you start smoking? 11/19/2014 How often do you smoke cigarettes? Every day How many cigarettes a day do you smoke? 6-10 How soon after you wake up d o you smoke your first cigarette? 6-30 minutes Are you interested in quitting? Ready to quit Additional Findings: Tobacco user Modera te cigarette smoker (10-19 cigs/day) Vital Signs Height 5ft7in in 12/16/2024 Weight 180 lbs 12/16/2024 BMI 28.19 kg/m2 12/16/2024 Blood pressure systolic 120 mm Hg 12/16/19 25 Blood pressure diastolic 65 mm Hg 025 Encounters Encounter Location Date Provider Diagnosis [facility] [place] [address] [place] [address] 12/16/2024 Alpa Diamond Other hammer toe(s) (acquired), right foot M20.41 ; Tinea pedis of both feet B35.3 ; Type 2 diabetes mellitus with diabetic polyneuropathy E11.42 ; Tinea unguium B35.1 and Other hammer toe(s) (acquired), left foot M20.42 Assessments Encounter Date Diagnosis (ICD Code) Assessment Notes Treatment Notes Treatment Clinical Notes Section Notes 12/16/2024 Other hammer toe(s) (acquired), right foot (ICD-10 - M20.41) 12/16/2024 Tinea pedis of both feet (ICD-10 - B35.3) 12/16/2024 Type 2 diabetes mellitus with diabetic polyneuropathy (ICD-10 - E11.42) 12/16/2024 Tinea unguium (ICD-10 - B35.1) 12/16/2024 Other hammer toe(s) (acquired), left foot (ICD-10 - M20.42) Plan Of Treatment Medication Medication Name Sig Start Date Stop Date Notes Ciclopirox Olamine 0.77 % 1 application Externally Twice a day to skin of feet including between the toes for 30 days Next Appt Details Follow Up: 3 Months, Reason: Provider Name:Alpa casillas, 03/17/2025 11:00:00 AM, [address] [place], [address], Procedure Notes * Category Sub-Category Detail Notes Debride Nail 6-10 Nail debridement Due to the cl inical pathology outlined in the exam findings, performance of this nail treatment is medically necessary as its management by an unskilled/untrained nonprofessional would put this patients foot and overall health at risk. Therefore, debridement to affected nail(s), as described in exam ( TA, T1, T2, T3, T4, T5, T6, T7, T8, T9, ), was performed exclusively by the physician of record to reduce/remove overall nail length, girth, thickness, subungual debris, and necrotic tissue, by manual and/or electrical means through the use of a nail nipper and/or dremel-type burr grinder, to a more viable healthy nail plate or bed tissue 6-10 nails in total. Silver nitrate was used for any petechial bleeding as necessary. Definitive antifungal treatment options, both pharmaceutical and surgical, have been reviewed and discussed with the patient. The patient solely prefers the use of intermittent/as needed professional debridement services for their nail condition and understands the need for additional periodic treatments to maintain effectiveness in symptomatic relief - 31052 Keratoma Treatment Parring or Cutting o f Benign Hyperkeratotic Lesion(s) (-57) More than 4 Lesions - Due to the at risk nature of the patients medical condition as documented in the exam findings, performance of this keratoderma treatment is medically necessary as its management by an unskilled/untrained nonprofessional would put this patients foot and overall health at risk. Therefore, the benign hyperkeratotic lesions, ( 7 ) in total, locations as stated and described in the exam ( TA , T5 , T6 ,SUB MTH (s), 1 B/L, Heels B/L), were pared, and/or cut utilizing a sterile 15 blade, tissue nippers, and/or power dremel instrumentation by the physician of record - [id number] Progress Notes * Lalito THOMPSON JrDOB:1955 (69 yo M)Acc No.[id number]:12/16/2024 Progress Note Patient:?Lalito THOMPSON Jr Provider:?Alpa Diamond DPM :1955???Age:69 Y???Sex:Male Anthony e:12/16/2024 Address:[address] [place] [address] [id number] Pcp:ZAN Story Subjective: * Chief Complaints: * ???At Risk FootcareToe Irrit ationSkin Problem * HPI: ???At Risk footcare:?Pt States Last PCP Visit:?Date?11/19/2024 ???Toe pain:?Location:?B/L feet.?Duration:?several years.?Aggravated by:?shoes, any pressure.?Treatments:?Rx shoes.?Skin problems:?Nature:?scaling , redness.?Location:?B/L .?Duration:?several days.?Course:?worse.? * ROS:?General/Constitutional:?Nausea?denies.?Vomiting?denies.?Hunger Thirst?denies.?Loss appetite?denies.?Chills?denies.?Fatigue?admits.?Fever?denies.?Night Sweats?denies.?Unexplained weight loss?denies.?Unexplained weight gain?denies.?HEENTM:?Dentures?admits.?Dizziness?admits.?Glasses/contacts?admits.?Retinopathy?de nies.?Blurred/double vision?denies.?TMJ?denies.?Discharge/drainage?denies.?Implants?denies.?Sore throat?admits.?Dental implants?denies.?Hard of hearing ?denies.?Difficulty chewing/swallowing/speaking?denies.?Nose bleeds?denies.?Sore mouth?denies.?Respiratory:?On Oxygen?denies.?Pneumonia/pleurisy?denies.?Bronchitis?denies.?Emphysema?denies.?C oughing?denies.?Cough blood?denies.?Shortness of breath?denies.?Wheezing?denies.?Cardiovascular:?Pacemaker?denies.?MVP?denies.?WPW?denies.?CHF?denies.?Heart attack?denies.?Septal defect?denies.?Rapid beat?denies.?Chest pain ?denies.?Atrial Fib.?denies.?Murmur/Palpitations?denies.?Gastrointestinal:?Hemorrhoids?denies.?Stomach/Abdominal pain?denies.?Dark blood stool?denies.?Irritable bowel ?denies.?Constipation?admits.?Diarrhea?denies.?Hematology:?Swelling?denies.?Clots?denies.?Varicose Veins?denies.?Bruising?admits.?Bleeding problem?denies.?Genitourinary:?Blood urine?denies.?Frequent/Painfu/urination/bladder control?denies.?Kidney stones?denies.?Infection (UTI)?admits.?Nephropathy?admits.?sex trans dis (STD)?denies.?Prostate?denies.?Musculoskeletal:?Hammertoes?denies.?Bunions?denies.?Back Pain?admits.?Muscle Cramps/ Resting?denies.?Muscle cramps / walking?denies.?Generalized aches and pains?denies.?Weakness?denies.?Integ.:?Tang?denies.?Scars?denies.?Corns/calluses?admits.?Ingrown nails?admits.?Painful nails?admits.?Open Sores?denies.?Rashes?denies.?Neurologic:?Difficulty sleeping?admits.?Brain disorder?denies.?Numbness?admits.?Balance trouble?admits.?Confusion?admits.?Fainting/blackouts?denies.?Tingling?admits.?Tr emors?admits.? * Medical History:? * Surgical History:?quad kecia s 08/04/18 * Hospitalization/Major Diagno stic Procedure:?Denies Past Hospitalization * Family History:?Mother: nicolas peres, diagnosed with Family history of arthritis.?Father: alive, foot problems, poor circulation, diagnosed with Unspecified essential hypertension, Unspecified heart disease, Family history of arthritis.? * Social History:?Tobacco Use:?Tobacco use other than smoking?Are you an other tobacco user??No ?Tobacco Control (Standard)?Tobacco use:?Current smoker ?When did you start smoking??11/19/2014 ?How often do you smoke cigarettes??Every day ?How many cigarettes a day do you smoke??6-10 ?How soon after you wake up do you smoke your first cigarette??6-30 minutes ?Are you interested in quitting??Ready to quit ?Additional Findings: Tobacco user?Moderate cigarette smoker (10-19 cigs/day) ???Miscellaneous:?Caffeine: yes, frequency:. ?Children: no. ?Exercise: yes. ?Marital status: . ?Occupation: Retired, SSDI. * Medications:?TakingExtra Dep th Orthopedic Shoes (1 Pair) with Customized Heat Molded Multidensity Innersoles (3 Pair) as directed Dx: NIDDM/Polyneuropathy (E11.42), Hammertoe Foot Deformity (M20.41,M20.42), Preulcerative Skin Lesion(s) (L85.1 metFORMIN HCl 1000 MG Tablet 1 tablet with a meal Orally Once a day Losartan Potassium 25 MG Tablet 1 tablet Orally Once a day Lancets FreeStyle Jesu 2 Jewett DULoxetine HCl 60 MG Capsule Delayed Release Particles 1 capsule Orally Once a day Dapagliflozin Propanediol 5 MG Tablet 1 tablet Orally Once a day compression stockings FreeStyle Lite Test Metoprolol Succinate Atorvastatin Calcium Lovastatin Aspirin Medication List reviewed and reconciled with the patientTaking Extra Depth Orthopedic Shoes (1 Pair) with Customized Heat Molded Multidensity Innersoles (3 Pair) as directed Dx: NIDDM/Polyneuropathy (E11.42), Hammertoe Foot Deformity (M20.41,M20.42), Preulcerative Skin Lesion(s) (L85.1 Taking metFORMIN HCl 1000 MG Tablet 1 tablet with a meal Orally Once a day Taking Losartan Potassium 25 MG Tablet 1 tablet Orally Once a day Taking Lancets Taking FreeStyle Jesu 2 Jewett Taking DULoxetine HCl 60 MG Capsule Delayed Release Particles 1 capsule Orally Once a day Taking Dapagliflozin Propanediol 5 MG Tablet 1 tablet Orally Once a day Taking compression stockings Taking FreeStyle Lite Test Taking Metoprolol Succinate Taking Atorvastatin Calcium Taking Lovastatin Taking Aspirin Medication List reviewed and reconciled with the patient * Allergies:?N.K.D.A.yes[Aller gies Verified] Objective: * Vitals:?Ht: 5ft7in, Wt:180, BMI:28.19, Shoe size: 9, BP:120/65mm Hg, BS: not taken, Ht-cm: 170.18 cm, Wt-k.65 kg. * ???Past Orders: ???Lab:HEMOGLOBIN A1C (GLYCO HEMOGLOBIN) (Order Date - 11/19/2024) (Collection Date & Time - 11/19/2024 11:01 AM) ? Value Reference Range ?HEMOGLOBIN A1C % (HH) 6.7 * Examination: ???Ophthalmology Referral: ?DIABETES EYE EXAM?Procedure Performed:?No ?Eye Exam not performed:?No reason specified?Neurological: ?SENSORY:? Neurological exam demonstrates, reduced light touch sensation, reduced sharp/dull pin prick discrimination , B/L, 5.07 monofilament test performed at plantar aspects of 5 varied sites per foot shows sensation, reduced , B/L.?Nails: ?NAILS are:?Elongated, overgrown, dystrophic, lytic, greater than 3mm thick, discolored and friable with crumbly malodorous subungual debris , with dull to no pain on palpation due to neuropathy, TA, T1, T2, T3, T4, T5, T6, T7, T8, T9.?Dermatologic: ?SKIN FINDINGS:?Skin exam reveals Keratotic lesion(s) located at , TA , T5 , T6 ,SUB MTH (s), 1 B/L, Heels B/L?? Skin shows sign(s) of, erythema, scaling, in a moccasin fashion, no fissure(s) present, B/L.?Vascular: ?DP PULSES (B):?3/4, B/L.?PT PULSES (B):?3/4, B/L.?CAPILLARY FILL TIME:?immediate, all digits, B/L.?TROPHIC CONDITION-TEXTURE/ELASTICITY/TURGOR/HAIR GROWTH (B):?normal, B/L.?TEMPERTURE GRADIENT (C):?normal, warm to cool, proximal to distal, B/L, B/L.?PIGMENTATION:?normal, B/L.?Orthopedic: ?MUSCLE STRENGTH:?5/5 all groups in a symmetrical fashion, B/L.?DIGITAL DEFORMITIES:?Digital contracture, PIPJ, 2-5 B/L, incompl-reducible to push-up test, no over, nor underlapping,?there is?evidence of shoe producing skin irritation.?FOOTWEAR:?OT were inspected and noted to be worn, but in good condition giving proper support at the present time.?General Examination: ?GENERAL APPEARANCE:?Reveals a pleasant, alert, well nourished, well- developed, well hydrated individual, who demonstrates proper attention to hygiene/body habitus, and is in no acute distress, Pt serves as own historian for office visit today.?ORIENTED:?person, place, and time.?FOOT EXAM:?Lower Extremity Neurological Exam performed:?Yes ?Visual exam of foot performed:?Yes ?Date?12/16/2024 ?Footwear Evaluation?Footwear Evaluation performed:?Yes??? Assessment: * Assessment: 1.?Other hammer toe(s) (acqu ired), right foot - M20.41???2.?Tinea pedis of both feet - B35.3 (Primary)???Specify :Acute problem, Uncomplicated (3),Rx drug management (4)???3.?Type 2 diabetes mellitus with diabetic polyneuropathy - E11.42???4.?Tinea unguium - B35.1???5.?Other hammer toe(s) (acquired), left foot - M20.42??? Plan: * Treatment: * Procedures:?Debride Nail 6-10:?Nail debridement?Due to the clinical pathology outlined in the exam findings, performance of this nail treatment is medically necessary as its management by an unskilled/untrained nonprofessional would put this patients foot and overall health at risk. Therefore, debridement to affected nail(s), as described in exam ( TA, T1, T2, T3, T4, T5, T6, T7, T8, T9, ), was performed exclusively by the physician of record to reduce/remove overall nail length, girth, thickness, subungual debris, and necrotic tissue, by manual and/or electrical means through the use of a nail nipper and/or dremel-type burr grinder, to a more viable healthy nail plate or bed tissue 6- 10 nails in total. Silver nitrate was used for any petechial bleeding as necessary. Definitive antifungal treatment options, both pharmaceutical and surgical, have been reviewed and discussed with the patient. The patient solely prefers the use of intermittent/as needed professional debridement services for their nail condition and understands the need for additional periodic treatments to maintain effectiveness in symptomatic relief - 36893.?Keratoma Treatment:?Parring or Cutting of Benign Hyperkeratotic Lesion(s)?(-57) More than 4 Lesions - Due to the at risk nature of the patients medical condition as documented in the exam findings, performance of this keratoderma treatment is medically necessary as its management by an unskilled/untrained nonprofessional would put this patients foot and overall health at risk. Therefore, the benign hyperkeratotic lesions, ( 7 ) in total, locations as stated and described in the exam (?TA?,?T5?,?T6?,SUB MTH (s), 1 B/L, Heels B/L), were pared, and/or cut utilizing a sterile 15 blade, tissue nippers, and/or power dremel instrumentation by the physician of record - [id number].? * Procedure Codes:?90424 DEBRI DE NAIL, 6 OR MORE, Modifiers: XS 48893 TRIM SKIN LESIONS, OVER 4, Modifiers: XS * Preventive Medicine:? ??Counseling:?Discussion:?-14: Office or other outpatient visit for the evaluation and management of an established patient, which required a medically appropriate history and/or examination and MODERATE level of DECISION MAKING for: 1 OR MORE CHRONIC PROBLEM(S) THATS WORSENING, 2 STABLE CHRONIC PROBLEMS, A NEWLY DIAGNOSED PROBLEM WITH UNCERTAIN PROGNOSIS, AN ACUTE COMPLICATED INJURY WITH MULTIPLE TREATMENT OPTIONS, OR AN ACUTE PROBLEM WITH ACCOMPANYING SYSTEMIC SYMPTOMS, THAT POSE(S) A MODERATE RISK OF MORBIDITY. THIS CONDITION MAY ALSO INCLUDE RX DRUG MANAGEMENT, OR A DECISON FOR MINOR SURGERY. The visit on the day of the encounter encompassed interpreting the data and educating the patient as to the nature of their condition, treatment options available according to their individual PMH, meds, allergies, and overall health/living conditions, as well as any potential risks or complications that may occur from a failure to adhere to, and participate in, the recommended course of therapy. The discussion included a complete verbal, and/or written explanation of the examination results, any x-rays taken, the proposed diagnosis, and outline of the treatment plan. A schedule for future care needs was also explained. The patient verbalized an understanding of the instructions at this time and agreed to be an active participant in their treatment. If the patient should think of any questions or concerns after the visit, I have encouraged the patient to call the office.?Shoe Gear Counseling:?A thorough inspection of the patients Rxed shoegear and inserts was performed and findings communicated. We reviewed the many important medical advantages for adhering to regularly wearing these shoe and insert accomidative devices daily as well as reviewed the fact that a failure in accepting these recommedations may be deleterious, unable to prevent, and disadvantagely result in, many pedal complications such as skin irritation, skin ulceration, infection, and even loss of toe/foot/leg/or even their life. Time was also spent reviewing the proper footcare techniques including daily skin moisturization, daily foot inspection for any interruption in skin integrity, open lesions, or sign of infection such as redness/malodor/drainage/swelling as well as daily shoe inspection for the presence of internal foreign bodies and shoe as well as insert wear. Patient questions re: shoes, inserts, and self foot inspections were answered to their satisfaction as the patient verbally confirmed a full understanding of the above information.?Tinea Pedis:?The patient was counseled on the diagnosis, potential etiologies, and treatment options for their skin condition. We discussed the risks and benefits of each option from performing no treatment, to utilizing OTC topical skin creams, prescription topical creams, customized compounded topical medications, and, if necessary, to utilize oral antifungal therapy. We discussed the advantages and disadvantages of each possible treatment and importance for adherence to all the recommended therapies for optimum success and avoid potential complications such as open sore/infection/possible hospitalization. We discussed the potential effectiveness of each topical preparation as well as each ones possible side effects and/or patient medication interactions if oral therapy is selected. Patient questions re: the advantages and disadvantages of each treatment choice, medication use/dosage, successful outcomes, and application consistency were reviewed and the patient verbalized that all answers were clearly understood. The patient was told they can help alleviate symptoms by utilizing moisture absorbant innersoles with activated charcoal and baking soda, applying antifungal sprays daily, aerating toe web spaces at night by putting cotton or lambs wool between the toes, alternating shoe gear daily if possible so they can dry out, changing socks at least once during the day, wearing well-ventilated shoes or sandals. The patient has decided to apply antifungal skin creams to their feet as directed. Rx was sent to their pharmacy at the time of visit.? ??Screening/Special Tests:?Fall Risk?Screening:?No falls in the past year ?FALLS: Screening for Future Fall Risk?Have you had any falls with injury in the past year??No * Follow Up:?3 Months * Images: * Sign off status: Completed true * Provider:?Alpa Diamond DPM Date:? Generated for Bartolo jimenez/Kerwin/Jean on:?03/10/2025 01:04 PM EDT History and Physical Notes * HPI (History of Present Illness) Category Sub-Category Detail Notes Category Not es Toe pain Location: B/L feet Duration: several years Aggravated by: shoes, any pressure Treatments: Rx shoes Skin problems Nature: scaling , redness Location: B/L Duration: several days Course: worse At Risk footcare Pt States Last PCP Visit: Date: 5 Examination Category Sub-Category Detail Notes Category Not es Neurological SENSORY: Neurological exa m demonstrates, reduced light touch sensation, reduced sharp/dull pin prick discrimination , B/L, 5.07 monofilament test performed at plantar aspects of 5 varied sites per foot shows sensation, reduced , B/L Dermatologic SKIN FINDINGS: Skin exam reveal s Keratotic lesion(s) located at , TA , T5 , T6 ,SUB MTH (s), 1 B/L, Heels B/L Skin shows sign(s) of, erythema, scaling, in a moccasin fashion, no fissure(s) present, B/L Orthopedic FOOTWEAR EVALUATION: OT were ins pected and noted to be worn, but in good condition giving proper support at the present time DIGITAL DEFORMITIES: Digital contracture , PIPJ, 2-5 B/L, incompl-reducible to push-up test, no over, nor underlapping, there is evidence of shoe producing skin irritation MUSCLE STRENGTH: 5/5 all groups in a symmetrical fashion, B/L General Examination GENERAL APPEARANCE: Reveals a pleasant, alert, well nourished, well-developed, well hydrated individual, who demonstrates proper attention to hygiene/body habitus, and is in no acute distress, Pt serves as own historian for office visit today FOOT EXAM: Lower Extremity Neurological Exa m performed:: Yes Visual exam of foot performed:: Yes Date: 12/16/2024 ORIENTED: person, place, and t merlene Footwear Evaluation Footwear Evaluation performe d:: Yes Ophthalmology Referral DIABETES EYE EXAM Procedure Perform ed:: No Eye Exam not performed:: No reason speci fied Vascular DP PULSES (B): 3/4, B/L PT PULSES (B): 3/4, B/L CAPILLARY FILL TIME: immediate, all digi ts, B/L TEMPERTURE GRADIENT (C): normal, warm to cool, proximal to distal, B/L, B/L TROPHIC CONDITION-TEXTURE/ELASTICITY/TURGOR/HAIR GROWTH (B): normal, B/L PIGMENTATION: normal, B/L Nails NAILS are: Elongated, overg rown, dystrophic, lytic, greater than 3mm thick, discolored and friable with crumbly malodorous subungual debris , with dull to no pain on palpation due to neuropathy, TA, T1, T2, T3, T4, T5, T6, T7, T8, T9
== END 2025-03-10 13:01 | disposition home or self-care (01) ==
LOC: HO.CT 13:00
PROVIDERS: PCP Nurse Practitioner Family; Visit Provider Physician Assistant Medical
DX: Z12.2 Encounter for screening for malignant neoplasm of respiratory organs (principal); Z87.891 Personal history of nicotine dependence
CPT/HCPCS: 71271

== ENCOUNTER → 2025-03-10 13:01 | Outpatient (BNV) | payer OTHER, SELFPAY | PROVIDERS: PCP Nurse Practitioner Family; Visit Provider Specialist | DX: Z12.2 Encounter for screening for malignant neoplasm of respiratory organs (principal); Z87.891 Personal history of nicotine dependence | CPT/HCPCS: 71271 ==

== ENCOUNTER 2025-10-09 13:47 | Outpatient (REF) | payer OTHER, SELFPAY ==
--- OUTSIDE RECORDS SUMMARY | 2024-09-21 06:15 | XMS_ITS ---
Author Organization [facility] Address [address] [place] [address] Care Team Providers Care Assistant Kitchen Manager Name Role Phone Ramin Lundberg Primary Care Provider Unav ailable Alpa Diamond [phone] Encounters Encounter Location Date Provider Diagnosis [address] [address] 09/21/2024 Alpa Diamond Plan Of Treatment Next Appt Details Provider Name:Alpa casillas, 01/02/2026 11:30:00 AM, [address] [place] [address], [phone], Progress Notes * Lalito THOMPSON JrDOB:1955 (69 yo M)Acc No.[id number]:09/21/2024 Progress Note Patient: Lalito SEPULVEDA Jr Provider: Chago Diamond DPM :1955 A ge:68 Y S ex:Male Date:09/21/2024 Address:[address] [place], [place] [id number] Pcp:ZAN Story Subjective: * Chief Complaints: * * Medical History: Objective: * Vitals: Assessment: Plan: * Treatment: * Images: * The named appointment provid er may or may not be the originator of this progress note, and it is not deemed complete until electronically signed by the appointment provider. Sign off status: Pending * Provider: Chago Diamond, DPM Date: 11/22/2023 Generated for Bartolo jimenez/Kerwin/Jean on: 12/10/2024 05:15 PM EST
--- OUTSIDE RECORDS SUMMARY | 2024-10-05 07:45 | XMS_ITS ---
Author Organization [facility] Address [address] [place] [phone] Care Team Providers Care Wet Room Worker Name Role Phone Ramin Lundberg Primary Care Provider Unav ailable Alpa Diamond [phone] Encounters Encounter Location Date Provider Diagnosis [address] [address] 10/05/2024 Alpa Diamond Plan Of Treatment Next Appt Details Provider Name:Alpa casillas, 01/02/2026 11:30:00 AM, [address] [place] [address], [phone], Progress Notes * Lalito THOMPSON JrDOB:1955 (69 yo M)Acc No.[id number]:10/05/2024 Progress Note Patient: Lalito SEPULVEDA Jr Provider: Chago Diamond DPM :1955 A ge:68 Y S ex:Male Date:10/05/2024 Address:[address] [place], [place] [id number] Pcp:ZAN Story Subjective: * Chief Complaints: * * Medical History: Objective: * Vitals: Assessment: Plan: * Treatment: * Images: * The named appointment provid er may or may not be the originator of this progress note, and it is not deemed complete until electronically signed by the appointment provider. Sign off status: Pending * Provider: Chago Diamond, DPM Date: 12/06/2023 Generated for Bartolo jimenez/Kerwin/Jean on: 12/10/2024 05:15 PM EST
--- OUTSIDE RECORDS SUMMARY | 2025-06-20 10:45 | XMS_ITS ---
Author Organization [facility] Address [address] [place] [address] Care Team Providers Care Cherry Dipper Name Role Phone Ramin Lundberg Primary Care Provider Unav ailable Alpa Diamond Unavailable [phone] Medications Medication SIG (Take, Route, Frequency, Duration) Notes Start Date End Date Status Ciclopirox Olamine 0.77 % 1 application Externally Twice a day to skin of feet including between the toes; Duration: 30 days Active Aspirin Active Lovastatin Active Atorvastatin Calcium Active Metoprolol Succinate Active FreeStyle Lite Test Active compression stockings Active Dapagliflozin Propanediol 5 MG 1 tablet Orally Once a day A ctive DULoxetine HCl 60 MG 1 capsule Orally On ce a day Active FreeStyle Jesu 2 Lebec Active Lancets Active Losartan Potassium 25 MG 1 tablet Orally Once a day Active metFORMIN HCl 1000 MG 1 tablet with a me al Orally Once a day Active Extra Depth Orthopedic Shoes (1 Pair) with Customized Heat Molded Multidensity Innersoles (3 Pair) as directed Dx: NIDDM/Polyneuropathy (E11.42), Hammertoe Foot Deformity (M20.41,M20.42), Preulcerative Skin Lesion(s) (L85.1 07/08/2024 Active Encounters Encounter Location Date Provider Diagnosis [facility] [address] [place] [address] 06/20/2025 Alpa Diamond Plan Of Treatment Next Appt Details Provider Name:Alpa casillas, 01/02/2026 11:30:00 AM, [address] [place], [address], Progress Notes * Lalito THOMPSON JrDOB:1955 (69 yo M)Acc No.[id number]:06/20/2025 Progress Note Patient: Lalito SEPULVEDA Jr Provider: Chago Diamond DPM :1955 A ge:69 Y S ex:Male Date:06/20/2025 Address:[address] [place], [place] [phone] Pcp:Ramin Ariza NP-CASSIDY Subjective: * Chief Complaints: * * Medical History: A nxiety, Back,Hip,and Knee pain, Broken bones, CAD (Cholesterol), Covid-19, Depression, Diabetic, Headaches/Migraines, Heart disease, High Blood Pressure, Keloid/Thick Scar, Numbness, Psychiatric disorder, Sciatica, Measles, Mumps, Chicken pox, Vascular grafts, Transfusions. 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), Hammertoe Foot Deformity (M20.41,M20.42), Preulcerative Skin Lesion(s) (L85.1 , Taking metFORMIN HCl 1000 MG Tablet 1 tablet with a meal Orally Once a day , Taking Losartan Potassium 25 MG Tablet 1 tablet Orally Once a day , Taking Lancets , Taking FreeStyle Jesu 2 Lebec , Taking DULoxetine HCl 60 MG Capsule Delayed Release Particles 1 capsule Orally Once a day , Taking Dapagliflozin Propanediol 5 MG Tablet 1 tablet Orally Once a day , Taking compression stockings , Taking FreeStyle Lite Test , Taking Metoprolol Succinate , Taking Atorvastatin Calcium , Taking Lovastatin , Taking Aspirin , Taking Ciclopirox Olamine 0.77 % Cream 1 application Externally Twice a day to skin of feet including between the toes Objective: * Vitals: Assessment: Plan: * Treatment: * Images: * The named appointment provid er may or may not be the originator of this progress note, and it is not deemed complete until electronically signed by the appointment provider. Sign off status: Pending * Provider: Chago Diamond, KRISTIN Date: 0 06/20/2025 Generated for Bartolo jimenez/Kerwin/Jean on: 1 12/10/2024 05:14 PM EST
--- OUTSIDE RECORDS SUMMARY | 2025-06-23 07:30 | XMS_ITS ---
Author Organization [facility] Address [address] [place] [address] Care Team Providers Care Sprinkler Tender Name Role Phone Ramin Lundberg Primary Care Provider Unav ailable Alpa Diamond [phone] Encounters Encounter Location Date Provider Diagnosis [address] [address] 06/23/2025 Alpa Diamond Plan Of Treatment Next Appt Details Provider Name:Alpa casillas, 01/02/2026 11:30:00 AM, [address] [place] [address], [phone], Progress Notes * Lalito THOMPSON JrDOB:1955 (69 yo M)Acc No.[id number]:06/23/2025 Progress Note Patient: Lalito SEPULVEDA Jr Provider: Chago Diamond DPM :1955 A ge:69 Y S ex:Male Date:06/23/2025 Address:[address] [place], [place] [phone] Pcp:ZAN Story Subjective: * Chief Complaints: * [...] 06/23/2025 Generated for Bartolo jimenez/Kerwin/Jean on: 1 12/10/2024 05:14 PM EST
[2025-10-09 16:03] LABS: MANUAL DIFF FLAG NO
[2025-10-09 16:08] LABS: Hematocrit 44.2 % (42.0-52.0); Hemoglobin 14.3 g/dl (14.0-18.0); Imm Gran Abs Auto 0.01 X10*3/uL (0.00-0.03); Imm Gran Pct Auto 0.1 % (0.0-0.4); Lymphocytes Absolute Auto 1.9 X10*3/uL (1.2-4.9); Mean Corpuscular HGB Conc 32.4 g/dl (31.0-36.0); Mean Corpuscular Hemoglobin 28.4 pg (27.0-33.0); Mean Corpuscular Volume 87.9 fL (80.0-98.0); NRBC Abs Auto 0.000 X10*3/uL (0.0-0.012); NRBC Pct Auto 0.0 /100WBC (0.0-0.2); Platelet Count 245 X10*3/uL (160-400); Red Blood Count 5.03 X10*6/uL (4.60-5.80); White Blood Count 9.5 X10*3/uL (4.8-10.8)
[2025-10-09 16:21] LABS: Appearance Urine Clear; Glucose Urine UA >=1000 mg/dL (Negative); PH 6.5 (5.0-9.0); Specific Gravity - Urine 1.020 (1.005-1.025); UMIC TRIGGER UACC YES
[2025-10-09 16:56] LABS: Alanine Aminotransferase 22 U/L (0-40); Albumin Level 4.4 g/dL (3.5-5.0); Alkaline Phosphatase 67 U/L (39-117); Anion Gap 11 (12-20); Aspartate Amino Transferase 21 U/L (5-37); Blood Urea Nitrogen 13 mg/dL (9-16); Calcium 9.6 mg/dL (8.4-10.2); Carbon Dioxide 31 mmol/L (22-29); Chloride 103 mmol/L (96-108); Cholesterol 112 mg/dL (<200); Estimated Glomerular Filt Rate > 60; HDL Cholesterol 53 mg/dL (>40); Potassium 4.5 mmol/L (3.3-5.1); Sodium 140 mmol/L (135-145); Total Protein 6.8 g/dL (6.5-8.0); Triglycerides 62 mg/dL (<150)
[2025-10-09 17:07] LABS: Microalbum/Creatinine Ratio Ur 7.3 ug/mg cr (<30)
--- OUTSIDE RECORDS SUMMARY | 2025-10-09 17:15 | XMS_ITS | Data Portability ---
Author Organization [employer] [facility] Address [address] [place] [address] Care Team Providers Care 7Th Grade Teacher Name Role Phone HIM EDITA OTHER Assessment Encounter Date Assessment Date Assessment LastModified by Organization Details LastModified Time 06/15/2024 06/15/2024 As noted, we were called to see this patient regarding concerns of dysuria and hyperglycemia. Evaluation in the field was performed by my highway landscape architect colleague, as noted above, I provided real-time [...] or symptoms of worsening illness including above. [email or web address] Not available 06/15/2024 16:28:12 Plan of Treatment Reminders Order Date Submit Date Provider Last Modified By Organization Details Last Modified Time Details Appointments None recorded. Lab urinalysis, dipstick 2023 rsullivan [address] [facility], [address] [place] [address], [id number] 4 15:48:40 BMP, serum or plasma 2023 rsullivan [facility], [address] [place] [address], [id number] 4 15:48:45 culture, urine 2023 QUENTIN [facility] (Centralized Electronic Ordering - All Locations), Patient Can Go To The Location Of Their Choice, [address] 4 10:06:06 BMP, serum or plasma 2023 gbaci [facility], [address] [place] [address], [address] 4 20:28:57 hemoglobin + hematocrit, blood 2023 gbaci [facility], [address] [place] [address], [address] 20:29:16 Referral None recorded. Procedures None recorded. Surgeries None recorded. Imaging None recorded. Medication Orders cephalexin 500 mg capsule 2023 rsullivan 84 [id number], [address] [place], [address], 4 15:48:15 cephalexin 500 mg tablet 2023 QUENTIN [id number], [address] [place], [address], 4 15:49:50 lactated Ringers intravenous solution 2023 024 gbaci Not available 20:23:18 metformin ER 1,000 mg 24 hr tablet,exte nded release (gastric reten.) 2023 024 QUENTIN [id number], [address] [place] [address], [place], [address], 20:27:58 Patient TargetsNo targets recorded. Patient InstructionsNo instructions recorded. Reason for Referral None Reported. Results Created Date Observation Date Name Description Value Unit Range Abnormal Flag Note LastModifiedBy Organization Detail LastModifiedTime 03/10/20 24 03/10/2024 hemog lobin + hemat ocrit , blood Hemoglobin 13.3 Not Available [facility] - [address], [address] 03/10/2024 20:29:03 03/10/20 24 03/10/2024 hemog lobin + hemat ocrit , blood Hematocrit 39 Not Available [facility] - [address], [address] 03/10/2024 20:29:03 03/10/20 24 03/10/2024 BMP, serum or plasm a BUN 25 Not Available [facility] [address], [id number] 03/10/2024 20:23:01 03/10/20 24 03/10/2024 BMP, serum or plasm a Ca 1.2 Not Available [facility] [address], [id number] 03/10/2024 20:23:01 03/10/20 24 03/10/2024 BMP, serum or plasm a CI- 102 Not Available [facility] [address], [address] 03/10/2024 20:23:01 03/10/20 24 03/10/2024 BMP, serum or plasm a CRE 1.0 Not Available [facility] [address], [phone] 03/10/2024 20:23:01 03/10/20 24 03/10/2024 BMP, serum or plasm a GLU 316 Not Available [facility] [address], [id number] 03/10/2024 20:23:01 03/10/20 24 03/10/2024 BMP, serum or plasm a K+ 4.1 Not Available [facility] [address], [address] 03/10/2024 20:23:01 03/10/20 24 03/10/2024 BMP, serum or plasm a Na+ 140 Not Available [facility] [address], [id number] 03/10/2024 20:23:01 03/10/20 24 03/10/2024 BMP, serum or plasm a tCO2 26 Not Available [facility] [address], [id number] 03/10/2024 20:23:01 06/15/20 24 06/18/2024 URINE CULTU RE,CO MPREH ENSIV E urine culture,comp rehensive Final report abnormal Not Available [facility] ([facility]) [address] [facility], [place], [address], 06/18/2024 10:06:06 06/15/20 24 06/18/2024 URINE CULTU [...] Imipe nem, Merop enem Not Available [facility] ([facility]) [address] [facility], [place], [address], 06/18/2024 10:06:06 06/15/2006/18/2024 URINE CULTU RE,CO MPREH [...] S Vanco mycin S Not Available [facility] ([facility]) [address] [facility], [place], [address], 06/18/2024 10:06:06 Result Notes None recorded. Medical Equipment None Reported. Allergies Allergen ID Allergen Name Allergen Category Reaction Reaction Severity Criticality Documentation Date Start Date Code Code System Note Provider Name and Address Organization Details Recorded Time 6011 Motrin medicatio n rash Not available Not available 06/15/2024 8 RxNorm Ezekiel Sparks MD [address] [place] [address],[address], [place], [address], FIRE1 15:44:24 Medications Name Sig Start Date Stop [...] Not Available Not Available No t Available Listia Houlka Lite kit active Not Available Not Available [...] Recorded Respiratory rate Body height Oxygen saturation Heart rate Body weight Body temperature Systolic And Diastolic Provider Name and Address Organization Details Last Updated DateTime 4 16 /min 172.72 cm 96 % 98 /min 91480.2 8 g 97.7 [degF] 134/71 mm[Hg] Not Available [facility] 4 20:17:18 Date Recorded Oxygen saturation Body height Heart rate Body temperature Body weight Respiratory rate Systolic And Diastolic Provider Name and Address Organization Details Last Updated DateTime 4 95 % 170.18 cm 95 /min 98 [degF] 05088.4 4 g 18 /min 156/90 mm[Hg] Not Available [facility] 4 15:18:08 Social History None recorded. Functional Status None recorded. Mental Status None recorded. Family History Nothing Reported. Medical History No medical history recorded. Past Encounters Encounter ID Performer Location Encounter Start Date Encounter Closed Date Diagnosis/Indication Diagnosis SNOMED-CT Code Diagnosis ICD10 Code Diagnosis IMO Codes Diagnosis Note [id number] TRESA SUAREZ MD [facility] [address] [place] [phone] 03/10/2024 20:17:04 03/11/2024 10:35:31 Hyperglycemia due to type 2 diabetes mellitus 2861708610 92292 E11.65 Evaluation in the field was performed by my highway landscape architect colleague, as noted above, I provided real-time [...] , fever, chills or any other concerns. [id number] Ezekiel Sparks MD [facility] [address] [place] [phone] 06/15/2024 15:18:05 06/15/2024 22:38:34 Dysuria 37824924 R30.0 Health Concerns Section Related Observation LastModified by Organization Detai ls LastModified Time None Recorded Concern Status LastModified by Organization Details LastModified Time None Recorded Advance Directives Directive None Recorded Payers Insurance Date Sequence Insurance Name Policy Number Policy Lazo Covered Member ID Lazo Member ID Guarantor Name 06/15/2024 1 [facility] - DOS ON OR AFTER 2023 - DUAL ELIGIBLE - ASSISTED OPTIONS AND ONE CARE (MEDICARE REPLACEMENT/ADV ANTAGE - HMO) Lalito Thompson [id number] Lalito Thompson Notes Date Note Type Note Provider Name and Address Organization Details Recorded Time 03/10/2024 text/html ROS as noted in the [facility] Nurse Triage Notes (Rex Smart): Reason For Request: sugar not controlled/feet hurting Chief Complaints: Diabetes Related, Pain Allergies: Unknown Comments: Middle School Guidance Counselor verified the member's name//address and phone number. [...] s/s and seek emergency treatment if needed -Toan Smart RN [employer] Utility POC Test Results from Mikey Meléndez - LESIA iSTAT Chem8+ (1) [21:30] Na: 140 mEq/L K: 4.1 mEq/L Cl: 102 mEq/L iCa: 1.20 mmol/L TCO2: 26 mmol/L Glu: 316 mg/dL BUN: 25 mg/dL Crea: 1.0 mg/dL Hct: 39 % Hb: 13.3 g/dL A ................... ................... ................... ................... ................... ................... ................... ........ Gelatin Maker Utility Note From Mikey Meléndez: Smartcare visit for [...] and BMP labs drawn. Uploaded BMP to [facility]. Consulted with Dr. Suarez who instructed pt to take an additional half tablet of metformin and give 1 liter LR administered on scene. Pt told to follow up with PCP as metformin is not managing blood sugar. Reviewed red flags for ED. Patient education provided. ................... ................... ................... ................... ................... ................... ................... ........ Disposition: Danilo TRESA SUAREZ MD [address] [facility],[address], [place], [address], [place] [employer] 03/10/2024 21:49:38 06/15/2024 text/html ROS as noted in the HPI HPI: Mikayla is a 68 yo male with hx of HLD, HTN, CPTSD, MDD, Opiate dependence, post aortocoronary bypass graft, CAD, Type 2 DM, Morbid Obesity, ETOH dep in remission, NEREYDA and COPD. Allergies to Motrin. Mbr service rep calling in with mbr on the line due to medical concerns. Spoke with Mbr who reported that he had Covid in [...] could not recall the last result. Offered [facility] and he agreed. Instructed Mbr to call 911 and go to ER if he develops worsening s/s, increased SOB and fever. Mbr agreed to do. Confirmed address and phone/[phone]. ................... ................... ................... ................... ................... ................... ................... ........ CRC Nurse Triage Notes (April Polk): Chief Complaints: Diabetes Related, UTI/Pyelonephritis, Weakness/Lethargy, Shortness of Breath/Dyspnea PMH: COPD/Asthma, Diabetes, Hypertension, Heart Disease Other Allergies: Motrin Comments: HPI reviewed. No further information needed to process visit. Gelatin Maker Utility Organization Information for Mikey Meléndez Business Legal Name: [employer]. Address: [address] [place] [address], Director Of Undergraduate Admissions: Jim Pisano MD [place] No.: [id number] [employer] Utility POC Test Results from Mikey Meléndez Blood [...] ................... ................... ................... ................... ................... ................... ........ Gel[employer] Maker Utility Note From Mikey Meléndez: Smartcare visit for male pt. Pt complains of [...] Finger stick glucose 252 mg/dl. Consulted with [facility] Dr. Sparks who ordered BMP. IV placed and blood drawn. BMP results uploaded to [facility]. Dr. Sparks ordered 500 mg of oral cephalexin. Urine culture specimen obtained and brought to [facility]. Reviewed red flags for ED. Pt education provided. [facility] Lab Orders: urinalysis, dipstick: Performed ................... ................... ................... ................... ................... ................... ................... ........ Disposition: Fulfilled Ezekiel Sparks MD [address] [facility],[address], [place], [address], TOMAS[employer] - [employer] 06/15/2024 17:40:11
--- OUTSIDE RECORDS SUMMARY | 2025-10-09 17:15 | XMS_ITS | Patient Health Record ---
Author Organization [facility] Address [address] [place] [address] Care Team Providers Care Oil Field Pipeline Supervisor Name Role Phone OCHOA GONZALEZ Primary Care Provider Alonso Rios Unavailable [phone] Allergies Allergen (clinical drug ingredient) Drug/Non Drug Allergy documented on EMR Reaction Allergy Type Onset Date Status Motrin Unknown Drug Allergy Active Reason For Referral No Information Medications Medication SIG (Take, Route, Frequency, Duration) Notes Start Date End Date Status ProAir HFA 108 (90 Base) MCG/ACT Aerosol Solution 2 puffs as needed Inhalation every 6 hrs Active Aspir-81 81 MG Tablet Delayed Release 1 tablet Orally Once a day Active Suboxone Active Dulcolax (colon prep) 5 MG Tablet Delayed Release take at 3:00 p.m and 7:00p.m. Orally two tablets twice a day for one day; Duration: 1 day 06/23/2018 Active MiraLax (colon prep) 8.3 ounce ((238) grams mixed with Gatorade or Crystal Light orally begin at 5:00 p.m. the day before the procedure; Duration: 1 day 06/23/2018 Active traZODone HCl 100 MG Tablet TAKE 2 TABLETS BY MOUTH EVERY DAY AT BEDTIME Oral; Duration: 30 Active Social History Tobacco Use: Social History Observation Description Date Details (start date - stop date) Current Smoker NA - NA Social History Drugs/Alcohol: Social Info Question Answer Notes Alcohol Screen Did you have a drink containing alcohol in the past year? No Points 0 Interpretation Negative Tobacco Use: Social Info Question Answer Notes Tobacco Use/Smoking Patient is a current smoker How often do you smoke cigarettes? every day How many cigarettes a day do you smoke? 11-20 How soon after you wake up do you smoke your first cigarette? 31-60 minutes Are you interested in quitting? Ready to quit Additional Details Category Social Info Options Details Miscellaneous: Marital status: Occupation: Unemployed Section Notes: As per PMH Smoker 1 ppd Problems Problem Type SNOMED Code ICD Code Onset Dates Problem Status W/U Status Risk Notes Problem Screening for malignant neoplasm of colon (478458152) Encounter for screening for malignant neoplasm of colon (Z12.11) Active confirmed Problem Preprocedural examination (157889356129941) Preprocedural examination (Z01.818) Active confirmed Plan Of Treatment Future Test Test Name Order Date COLONOSCOPY 06/23/2018 Insurance Providers Payer Name Payer Address Payer Phone Subscriber Number Group Number Insured Name Patient Relationship to Insured Coverage Start Date Coverage End Date [facility] [facility] [address] [address] [place], [place] [id number] DESMOND COLEY Self - patient is the insured Medical (General) History Medical History History ICD Code Denies [place],DM,CVA,renal disease Asthma Anxiety 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 03/2017 Surgical History Surgery Date(Month/Year) Lower back L4/L5 1994
--- OUTSIDE RECORDS SUMMARY | 2025-10-09 17:15 | XMS_ITS | Patient Health Record ---
[facility] Organization [facility] Address [address] [place] [address] Care Team Providers Care Metal Window Screen Assembler Name Role Phone Ramin Lundberg Primary Care Provider Unav ailable Alpa Diamond Unavailable [phone] Allergies No Known Allergies Results Component Value Reference Range Notes HEMOGLOBIN A1C (GLYCOHEMOGLO BIN) Reviewed date:12/16/2024 11:01:32 AM Interpretation: Performing Lab: Notes/Report: HEMOGLOBIN A1C % (HH) 6.7 Reason For Referral No Information Medications Medication SIG (Take, Route, Frequency, Duration) Notes Start Date End Date Status Ciclopirox Olamine 0.77 % 1 application Externally Twice a day to skin of feet including between the toes; Duration: 30 days Active Atorvastatin Calcium Active Metoprolol Succinate Active Aspirin Active Lovastatin Active Dapagliflozin Propanediol 5 MG 1 tablet Orally Once a day A ctive DULoxetine HCl 60 MG 1 capsule Orally On ce a day Active Extra Depth Orthopedic Shoes (1 Pair) with Customized Heat Molded Multidensity Innersoles (3 Pair) Dx: NIDDM/Polyneuropathy (E11.42), Hammertoe Foot Deformity (M20.41,M20.42), Preulcerative Skin Lesion(s) (L85.1); Duration: 365 days 09/26/2025 Active FreeStyle Lite Test Active compression stockings Active Losartan Potassium 25 MG 1 tablet Orally Once a day Active metFORMIN HCl 1000 MG 1 tablet with a me al Orally Once a day Active FreeStyle Jesu 2 [place] Active Lancets Active Extra Depth Orthopedic Shoes (1 Pair) with Customized Heat Molded Multidensity Innersoles (3 Pair) as directed Dx: NIDDM/Polyneuropathy (E11.42), Hammertoe Foot Deformity (M20.41,M20.42), Preulcerative Skin Lesion(s) (L85.1 07/08/2024 Active Immunizations Vaccine Route Administration Date Status Comme nts Influenza Unknown 07/21/2025 Administered Social History Tobacco Use: Social History Observation [...] user Modera te cigarette smoker (10-19 cigs/day) AUDIT-C (Standard) Question Answer Notes Did you have a drink containing alcohol in the p ast year? No Points 0 Interpretation Negative Problems Problem Type SNOMED Code ICD Code Onset Dates Problem Status W/U Status Risk Notes Problem Acquired hammer toe of right foot (6055065712378006 ) Other hammer toe(s) (acquired), right foot (M20.41) Active confirmed Problem Acquired hammer toe of left foot (2637448878197889 ) Other hammer toe(s) (acquired), left foot (M20.42) Active confirmed Problem Polyneuropathy due to type 2 diabetes mellitus (089939557) Type 2 diabetes mellitus with diabetic polyneuropathy (E11.42) Active confirmed Vital Signs Blood pressure diastolic 65 mm Hg 03/17/2025 Height 5ft7in in 09/26/2025 Blood pressure systolic 120 mm Hg 03/17/2025 Weight 165 lbs 09/26/2025 BMI 25.84 kg/m2 09/26/2025 Encounters Encounter Location Date Provider Diagnosis [facility] [address] [place] [address] 12/16/2024 Alpa Diamond Other hammer toe(s) (acquired), right foot M20.41 ; Tinea pedis of both feet B35.3 ; Type 2 diabetes mellitus with diabetic polyneuropathy E11.42 ; Tinea unguium B35.1 and Other hammer toe(s) (acquired), left foot M20.[address] [address] 03/17/2025 Alpa Diamond Other hammer toe(s) (acquired), right foot M20.41 ; Tinea pedis of both feet B35.3 ; Type 2 diabetes mellitus with diabetic polyneuropathy E11.42 ; Tinea unguium B35.1 and Other hammer toe(s) (acquired), left foot M20.[address] [address] 09/26/2025 Alpa Diamond Other hammer toe(s) (acquired), right foot M20.41 ; Type 2 diabetes mellitus with diabetic polyneuropathy E11.42 ; Tinea unguium B35.1 and Other hammer toe(s) (acquired), left foot M20.[address] [address] 06/20/2025 Alpa Diamond [address] [address] 06/22/2025 Alpa Diamond Assessments Encounter Date Diagnosis (ICD Code) Assessment Notes Treatment Notes Treatment Clinical Notes Section Notes 12/16/2024 Other hammer toe(s) (acquired), right foot (ICD-10 - M20.41) 12/16/2024 Tinea pedis of both feet (ICD-10 - B35.3) 03/17/2025 Other hammer toe(s) (acquired), right foot (ICD-10 - M20.41) 03/17/2025 Tinea pedis of both feet (ICD-10 - B35.3) 09/26/2025 Other hammer toe(s) (acquired), right foot (ICD-10 - M20.41) Patient Educated with: DIABETIC FOOT CARE INSTRUCTIONS. pdf (DIABETIC FOOT CARE INSTRUCTIONS. pdf) 09/26/2025 Type 2 diabetes mellitus with diabetic polyneuropathy (ICD-10 - E11.42) 09/26/2025 Tinea unguium (ICD-10 - B35.1) 03/17/2025 Type 2 diabetes mellitus with diabetic polyneuropathy (ICD-10 - E11.42) 12/16/2024 Type 2 diabetes mellitus with diabetic polyneuropathy (ICD-10 - E11.42) 12/16/2024 Tinea unguium (ICD-10 - B35.1) 03/17/2025 Tinea unguium (ICD-10 - B35.1) 09/26/2025 Other hammer toe(s) (acquired), left foot (ICD-10 - M20.42) 03/17/2025 Other hammer toe(s) (acquired), left foot (ICD-10 - M20.42) 12/16/2024 Other hammer toe(s) (acquired), left foot (ICD-10 - M20.42) Plan Of Treatment Next Appt Details Provider Name:Alpa casillas, 01/02/2026 11:30:00 AM, [address] [place] [address], [phone], Insurance Providers Payer Name Payer Address Payer Phone Subscriber Number Group Number Insured Name Patient Relationship to Insured Coverage Start Date Coverage End Date [facility] [employer] Claims [address] [place] [id number] Augustus Thompson Self - patient is the insured Medical (General) History Medical History History ICD Code Anxiety Back,Hip,and Knee pain Broken bones CAD (Cholesterol) covid-19 Depression Diabetic Headaches/Migraines Heart disease High Blood Pressure Keloid/Thick Scar Numbness Psychiatric disorder Sciatica Measles Mumps Chicken pox Vascular grafts Transfusions Surgical History Surgery Date(Month/Year) quad bypass 08/04/18
== END 2025-10-09 13:48 ==
LOC: HO.HMGCLDS 13:47
PROVIDERS: PCP Nurse Practitioner Family; Visit Provider Nurse Practitioner Family
DX: E11.65 Type 2 diabetes mellitus with hyperglycemia (principal); E55.9 Vitamin D deficiency, unspecified; Z12.5 Encounter for screening for malignant neoplasm of prostate; Z13.21 Encounter for screening for nutritional disorder
CPT/HCPCS: 36415; 80053; 80061; 81001; 82043; 82306; 82570; 83036; 84153; 84443; 85025

== ENCOUNTER 2025-10-16 14:26 | Outpatient (AMB) | payer OTHER, SELFPAY ==
--- OUTSIDE RECORDS SUMMARY | 2024-09-21 06:15 | XMS_ITS ---
Author Organization [facility] Address [address] [place] [address] Care Team Providers Care Sandfill Operator Name Role Phone Ramin Lundberg Primary Care Provider Unav ailable Alpa Diamond [phone] Encounters Encounter Location Date Provider Diagnosis [address] [address] 09/21/2024 Alpa Diamond Plan Of Treatment Next Appt Details Provider Name:Alpa casillas, 01/02/2026 11:30:00 AM, [address] [place] [address], [phone], Progress Notes * Lalito THOMPSON JrDOB:1955 (69 yo M)Acc No.[id number]:09/21/2024 Progress Note Patient: Lalito SEPULVEDA Jr Provider: Chago Diamond DPM :1955 A ge:68 Y S ex:Male Date:09/21/2024 Address:[address] [place], [place] [id number] Pcp:ZAN Story Subjective: * Chief Complaints: * [...] Date: 11/22/2023 Generated for Bartolo jimenez/Kerwin/Jean on: 04:46 PM EST
--- OUTSIDE RECORDS SUMMARY | 2024-10-05 07:45 | XMS_ITS ---
Author Organization [facility] Address [address] [place] [phone] Care Team Providers Care Hazmat Tanker Driver Name Role Phone Ramin Lundberg Primary Care Provider Unav ailable Alpa Diamond [phone] Encounters Encounter Location Date Provider Diagnosis [address] [address] 10/05/2024 Alpa Diamond Plan Of Treatment Next Appt Details Provider Name:Alpa casillas, 01/02/2026 11:30:00 AM, [address] [place] [address], [phone], Progress Notes * Lalito THOMPSON JrDOB:1955 (69 yo M)Acc No.[id number]:10/05/2024 Progress Note Patient: Lalito SEPULVEDA Jr Provider: Chago Diamond DPM :1955 A ge:68 Y S ex:Male Date:10/05/2024 Address:[address] [place], [place] [id number] Pcp:ZAN Story Subjective: * Chief Complaints: * [...] Date: 12/06/2023 Generated for Bartolo jimenez/Kerwin/Jean on: 04:47 PM EST
--- OUTSIDE RECORDS SUMMARY | 2025-06-20 10:45 | XMS_ITS ---
Author Organization [facility] Address [address] [place] [address] Care Team Providers Care Head Charrer Name Role Phone Ramin Lundberg Primary Care Provider Unav ailable Alpa Diamond Unavailable [phone] Medications Medication SIG (Take, Route, Frequency, Duration) [...] ce a day Active FreeStyle Jesu 2 Bradford Active Lancets Active Losartan Potassium 25 MG [...] Active Encounters Encounter Location Date Provider Diagnosis [facility] [address] [place] [address] 06/20/2025 Alpa Diamond Plan Of Treatment Next Appt Details Provider Name:Alpa casillas, 01/02/2026 11:30:00 AM, [address] [place], [address], Progress Notes * Lalito THOMPSON JrDOB:1955 (69 yo M)Acc No.[id number]:06/20/2025 Progress Note Patient: Lalito SEPULVEDA Jr Provider: Chago Diamond DPM :1955 A ge:69 Y S ex:Male Date:06/20/2025 Address:[address] [place], [place] [phone] Pcp:Ramin Ariza NP-CASSIDY Subjective: * Chief Complaints: [...] Taking Lancets , Taking FreeStyle Jesu 2 Bradford , Taking DULoxetine HCl 60 MG Capsule [...] Sign off status: Pending * Provider: Chago Diamond DPM Date: 0 06/20/2025 Generated for Bartolo jimenez/Kerwin/Jean on: 1 04:46 PM EST
--- OUTSIDE RECORDS SUMMARY | 2025-06-23 07:30 | XMS_ITS ---
Author Organization [facility] Address [address] [place] [address] Care Team Providers Care B And B Gang Worker Name Role Phone Ramin Lundberg Primary Care Provider Unav ailable Alpa Diamond [phone] Encounters Encounter Location Date Provider Diagnosis [address] [address] 06/23/2025 Alpa Diamond Plan Of Treatment Next Appt Details Provider Name:Alpa casillas, 01/02/2026 11:30:00 AM, [address] [place] [address], [phone], Progress Notes * Lalito THOMPSON JrDOB:1955 (69 yo M)Acc No.[id number]:06/23/2025 Progress Note Patient: Lalito SEPULVEDA Jr Provider: Chago Diamond DPM :1955 A ge:69 Y S ex:Male Date:06/23/2025 Address:[address] [place], [place] [phone] Pcp:ZAN Story Subjective: * Chief Complaints: * * Medical History: Objective: * Vitals: Assessment: Plan: * Treatment: * Images: * The named appointment provid er may or may not be the originator of this progress note, and it is not deemed complete until electronically signed by the appointment provider. Sign off status: Pending * Provider: Chago Diamond, KRISTIN Date: 0 06/23/2025 Generated for Bartolo jimenez/Kerwin/Jean on: 1 04:46 PM EST
[2025-10-16 14:30] VITALS: BP 124/84; PULSE 80; RESP 18; O2SAT 95
--- NOTE | 2025-10-16 14:30 | MHC.PC.OV ---
Vital Signs 10/16/25 14:30 Weight 160 lb BP 124/84 Blood Pressure Location Lt brachial Position Sitting Respiration 18 Pulse 80 Pulse Source Pulse Oximeter Pulse Oximetry (%) 95 Oxygen Delivery Method Room Air Intake Visit Reasons: PE Metal Stud Framer Required: No Accompanied by: Self / Same As Patient Allergies ibuprofen (From Motrin) Adverse Reaction (Unknown, Verified 10/16/25 15:11) Gastrointestinal Upset Medication List - Last Reconciled 10/16/25 by SERGO RodriguezP- aspirin 81 mg PO DAILY 30 days atorvastatin 80 mg PO DAILY blood sugar diagnostic (FreeStyle Lite Strips) check glucose BID blood-glucose meter (FreeStyle Lite Meter kit) check glucose BID comp.stocking,knee,long,medium for edema, please wear daily diclofenac sodium 1% 4 grams topical QID duloxetine 60 mg PO BEDTIME Farxiga (dapagliflozin propanediol) 5 mg PO DAILY NS FreeStyle Jesu 2 [place] (flash glucose scanning reader) TID testing NS FreeStyle Jesu 2 Sensor (flash glucose sensor) TID testing NS [handheld shower head As directed] lancets (FreeStyle Lancets) check glucose BID losartan 25 mg PO DAILY metformin ER 500 mg PO BID 90 days metoprolol succinate ER 25 mg PO DAILY nicotine 1 patch transdermal DAILY 28 days nicotine 1 patch transdermal DAILY 28 days [raised toilet seat As directed] semaglutide 1 mg (0.75 mL) subcut QWEEK sildenafil 25 mg PO DAILY PRN Tobacco use date assessed: 10/16/25 Fall risk assessment: No Falls in past year Last assessed Fall Risk: 10/16/25 Dental Screening Dental Screen Date: 10/16/25 Did you have a dental visit in the last 12 months?: No Did you have a dental problem in the last 6 months where you did not have access to dental care?: No Was dental information given to patient?: Patient declined HPI PE HPI Details History of Present Illness The patient is a 69 year old male presenting for a physical exam. He has a history of diabetes and reports chronic neuropathy, which is mostly in his right foot. His recent A1c was 5.4%, and his LDL was 53. His previous medication regimen for diabetes was metformin 750 mg twice a day. His PSA and microalbumin are up to date. Regarding preventative care, he was due for a Cologuard test but left the kit at his old residence after moving. He has refused any and all vaccinations. he is part of our LDCT program. He does see a planishing press operator and vp packaging. He also has a psychiatrist and psychologist Health Maintenance The patient is due for a Cologuard test; a new order will be placed since he misplaced the previous kit during a move. An order for his eye exam was resubmitted. The patient refused all vaccinations, and this has been documented. Social History - The patient recently moved and is now living with his mother. 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 Review of Systems - Cardiovascular: Denies chest pain. - Respiratory: Denies shortness of breath. - Gastrointestinal: Denies abdominal pain, hematochezia, constipation, and diarrhea. - Neurological: Reports chronic neuropathy, primarily affecting his right foot. - Psychiatric: Denies suicidal or homicidal ideation. Physical Exam General: Cooperative, healthy appearing, comfortable, no acute distress and well developed Orientation: Patient oriented x3 Limitations: No limitations Head: Normal to inspection Ears: Hearing grossly normal bilaterally Nose: Normal external nose present Face and sinus: Normal facial exam Eyes: Appearance normal, both eyes and all related structures Neck: Normal visual inspection and Yes full ROM Respiratory: Normal respiratory effort and able to speak in complete sentences. Clear to auscultation bilaterally Cardiovascular: Regular rate and rhythm. Normal S1 and S2 GI: Normal to inspection. Soft to palpation and nontender Skin: No rashes or lesions noted Neuro: Patient oriented x3, slight monofilament sensation to right foot toes, no vibration sensation on right foot, vibration sensation intact on left foot, onychomycosis noted Extremities: Normal to inspection Results - A1c: 5.4% - LDL: 53 mg/dL - PSA: Within normal limits Plan 1. Diabetes Mellitus The patient's A1c of 5.4% indicates excellent glycemic control. Based on this result, his metformin dose will be decreased from 750 mg twice daily to 500 mg twice daily. An order for a diabetic eye exam was also resubmitted. 2. Diabetic Neuropathy The patient has chronic neuropathy, predominantly in the right foot, confirmed on exam with diminished sensation. The plan is to continue monitoring. 3. Onychomycosis Onychomycosis was noted bilaterally on physical exam. No active management was discussed at this visit. 4. Encounter for general adult medical examination with abnormal findings Z00.01 Discussion Notes I discussed with the patient his impressive lab results, including an A1c of 5.4% and an LDL of 53. Due to his excellent glycemic control, I recommended reducing his metformin dosage from 750 mg twice daily to 500 mg twice daily. I informed him that I would place a new order for a Cologuard kit and resubmit the referral for his diabetic eye exam. We acknowledged his refusal of all vaccinations today. Patient Instructions - Your metformin dose has been decreased. Please start taking 500 mg twice a day. - A new order for your Cologuard colon cancer screening test has been submitted. - The referral for your diabetic eye exam has been resubmitted. [facility] Medical History Personal history of nicotine dependence History of fibula fracture Coronary artery disease Diabetes mellitus with diabetic neuropathy, without long-term current use of insulin Atherosclerotic cardiovascular disease Surgical History Status post coronary artery bypass graft History of lumbar discectomy (~1994) History of coronary artery bypass graft (~07/30/18) History of cardiac catheterization (~07/21/18) Family History Father Diabetes Mother Diabetes Myasthenia gravis Maternal Uncle Substance use disorder Mental health disorder Social History Housing: Apartment Patient Tobacco Use Status: Current everyday Tobacco user Cigarettes Per Day: 10 e-Cigarette/Vaping Use: Never Used Second Hand Smoke Exposure: No service: No Current occupational status: retired and disabled Cognitive needs: No Hearing needs: No Vision needs: No Questionnaire PHQ-9 Over the last 2 weeks, how often have you been bothered by any of the following problems? 1. Little interest or pleasure in doing things: not at all 2. Feeling down, depressed, or hopeless: not at all 3. Trouble falling or staying asleep, or sleeping too much: not at all 4. Feeling tired or having little energy: not at all 5. Poor appetite or overeating: not at all 6. Feeling bad about yourself - or that you are a failure or have let yourself or your family down: not at all 7. Trouble concentrating on things, such as reading the newspaper or watching television: not at all 8. Moving or speaking so slowly that other people could have noticed. Or the opposite - being so fidgety or restless that you have been moving around a lot more than usual: not at all 9. Thoughts that you would be better off or of hurting yourself in some way: not at all Total score: 0 Depression Screening Interpretation: Negative Depression Screening Done: Yes 66310 - PHQ-9 Billing: Yes Source: Developed by Drs. Alonso Mao, Micheline Hilliard, Dayo Case and colleagues, with an educational yessica from [employer]. Thrive Questionnaire Date Thrive assessed: 12/14/24 I am a: Patient What is your living situation today?: I have a place to live, but I am worried about losing it in the future Within the past 12 months, did the food you bought not last and you didn't have the money to get more?: Never true Within the past 12 months, did you worry whether your food would run out before you got money to buy more?: Never true Do you have trouble paying for medicines?: No Do you have trouble getting transportation to medical appointments?: No Do you have trouble paying your heating and electricity bill?: No Do you have trouble taking care of your child, family member or friend?: No Do you have trouble with day-to-day activities such as bathing, preparing meals, shopping, managing finances, etc.?: Yes Are you currently unemployed and looking for a job?: I choose not to answer this question Are you interested in more education?: No THRIVE Score: 1 NEREYDA-7 AMB Questionnaire NEREYDA-7 Date NEREYDA - 7 assessed: 12/14/24 Source: Developed by Drs. Alonso Mao, Micheline Hilliard, Dayo Case and colleagues, with an educational yessica from [employer]. Physical exam (Primary Care) Vital Signs: Last Vital Signs Pulse 80 10/16/25 14:30 Resp 18 10/16/25 14:30 BP 124/84 10/16/25 14:30 Pulse Ox 95 10/16/25 14:30 Oxygen Delivery Method Room Air 10/16/25 14:30 Tobacco/Smoking Status: Tobacco use Status Tobacco use date assessed 10/16/25 10/16/25 14:34 Patient Tobacco Use Status Current everyday Tobacco 10/16/25 14:34 e-Cigarette/Vaping Use Never Used 10/16/25 14:31 PHQ-9: PHQ-9 Score PHQ-9: Total score 0 10/16/25 14:34 Depression Screening Interpretation: Negative Thrive Assessment: Date of Thrive Assessment Date Thrive assessed 12/14/24 10/16/25 14:31 Coding Level of Care Code Est Pt Level 3 (60719) Est Pt Prev Care >65y(20347) Diagnoses Hearing loss H91.90 Diabetes mellitus with diabetic neuropathy, without long-term current use of insulin E11.40 Encounter for routine adult physical exam with abnormal findings Z00.01 Additional Codes PHQ-9 - 15743 - PHQ-9 Billing: Yes ([id number]) Assessment & Plan Assessment & Plan (1) Hearing loss: Code(s): H91.90 - Unspecified hearing loss, unspecified ear Category: Medical (2) Diabetes mellitus with diabetic neuropathy, without long-term current use of insulin: Code(s): E11.40 - Type 2 diabetes mellitus with diabetic neuropathy, unspecified Category: Medical (3) Encounter for routine adult physical exam with abnormal findings: Code(s): Z00.01 - Encounter for general adult medical examination with abnormal findings Category: Medical Plan . Orders: Referrals Speech and Hearing Referral H91.90 - Unspecified hearing loss, unspecified ear Cologuard Test Z12.11 - Encounter for screening for malignant neoplasm of colon, Z12.12 - Encounter for screening for malignant neoplasm of rectum Medications: Changed From metformin ER 750 mg PO BID 180 tabs 1RF 90 days To metformin ER 500 mg PO BID 180 tabs 1RF 90 days
--- OUTSIDE RECORDS SUMMARY | 2025-10-16 16:47 | XMS_ITS | Patient Health Record ---
Author Organization [facility] Address [address] [place] [address] Care Team Providers Care Safety And Skill Based Pay Manager Name Role Phone OCHOA GONZALEZ Primary Care Provider Alonso Rios Unavailable [phone] Allergies Allergen (clinical drug ingredient) Drug/Non Drug [...] Problem Screening for malignant neoplasm of colon (815344568) Encounter for screening for malignant neoplasm of colon (Z12.11) Active confirmed Problem Preprocedural examination (831915296842349) Preprocedural examination (Z01.818) Active confirmed Plan Of Treatment Future Test Test Name Order Date COLONOSCOPY 06/23/2018 Insurance Providers Payer Name Payer Address Payer Phone Subscriber Number Group Number Insured Name Patient Relationship to Insured Coverage Start Date Coverage End Date [facility] [employer] [facility] [address] [address] [place], [place] [id number] DESMOND COLEY Self - patient is the insured Medical (General) History Medical History History ICD Code Denies LA,DM,CVA,renal disease Asthma Anxiety 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 03/2017 Surgical History Surgery Date(Month/Year) Lower back L4/L5 1994
--- OUTSIDE RECORDS SUMMARY | 2025-10-16 16:47 | XMS_ITS | Patient Health Record ---
Author [facility] Address [address] [place] [address] Care Team Providers Care Sleeve Fixer Name Role Phone Ramin Lundberg Primary Care Provider Unav ailable Alpa Diamond Unavailable [phone] Allergies No Known Allergies Results Component Value [...] Once a day Active FreeStyle Jesu 2 [place] Active Lancets Active Extra Depth Orthopedic Shoes [...] Problem Acquired hammer toe of right foot (4481192684095378 ) Other hammer toe(s) (acquired), right foot (M20.41) Active confirmed Problem Acquired hammer toe of left foot (6228528508486409 ) Other hammer toe(s) (acquired), left foot (M20.42) Active confirmed Problem Polyneuropathy due to type 2 diabetes mellitus (331665125) Type 2 diabetes mellitus with diabetic polyneuropathy (E11.42) Active confirmed Vital Signs Blood pressure diastolic 65 mm Hg 03/17/2025 Height 5ft7in in 09/26/2025 Blood pressure systolic 120 mm Hg 03/17/2025 Weight 165 lbs 09/26/2025 BMI 25.84 kg/m2 09/26/2025 Encounters Encounter Location Date Provider Diagnosis [facility] [place] [address] [place] [address] 12/16/2024 Alpa Diamond Other hammer toe(s) (acquired), right foot M20.41 ; Tinea pedis of both feet B35.3 ; Type 2 diabetes mellitus with diabetic polyneuropathy E11.42 ; Tinea unguium B35.1 and Other hammer toe(s) (acquired), left foot M20.[address] [address] 03/17/2025 Alpa Diamond Other hammer toe(s) (acquired), right foot M20.41 ; Tinea pedis of both feet B35.3 ; Type 2 diabetes mellitus with diabetic polyneuropathy E11.42 ; Tinea unguium B35.1 and Other hammer toe(s) (acquired), left foot M20.[address] [address] 09/26/2025 Alpa Diamond Other hammer toe(s) (acquired), right foot M20.41 ; Type 2 diabetes mellitus with diabetic polyneuropathy E11.42 ; Tinea unguium B35.1 and Other hammer toe(s) (acquired), left foot M20.[address] [address] 06/20/2025 Alpa Diamond [address] [address] 06/22/2025 Alpa Diamond Assessments Encounter Date Diagnosis [...] Details Provider Name:Alpa casillas, 01/02/2026 11:30:00 AM, [address] [place] [address], [phone], Insurance Providers Payer Name Payer Address Payer Phone Subscriber Number Group Number Insured Name Patient Relationship to Insured Coverage Start Date Coverage End Date [facility] [employer] Claims [address] [place] [id number] Augustus Thompson Self - patient is the insured Medical (General) History Medical History History ICD Code Anxiety Back,Hip,and Knee pain Broken bones CAD (Cholesterol) covid-19 Depression Diabetic Headaches/Migraines Heart disease High Blood Pressure Keloid/Thick Scar Numbness Psychiatric disorder Sciatica Measles Mumps Chicken pox Vascular grafts Transfusions Surgical History Surgery Date(Month/Year) quad bypass 08/04/18
== END 2025-10-16 15:22 | disposition home or self-care (01) ==
LOC: HO.HMCC 14:27
PROVIDERS: PCP Nurse Practitioner Family; Visit Provider Nurse Practitioner Family
DX: Z00.01 Encounter for general adult medical examination with abnormal findings (principal); E11.40 Type 2 diabetes mellitus with diabetic neuropathy, unspecified; H91.93 Unspecified hearing loss, bilateral; Z12.11 Encounter for screening for malignant neoplasm of colon

== ENCOUNTER → 2025-10-16 14:26 | Outpatient (BNVA) | payer OTHER, SELFPAY | PROVIDERS: PCP Nurse Practitioner Family; Visit Provider Nurse Practitioner Family | DX: Z00.01 Encounter for general adult medical examination with abnormal findings (principal); E11.40 Type 2 diabetes mellitus with diabetic neuropathy, unspecified; H91.90 Unspecified hearing loss, unspecified ear; Z79.899 Other long term (current) drug therapy; Z13.31 Encounter for screening for depression | CPT/HCPCS: 96127; 99397 ==